=== PATIENT | female | born 1945 | race Caucasian/White ===

== ENCOUNTER 2024-10-01 21:50 | Emergency (ER) | payer OTHER, SELFPAY ==
--- NOTE | ~2024-10-01 | XR_ITS ---
XR hand LT min 3V Ordering provider: Abdon Luna MD History: . fall . Comparison: None. FINDINGS: BONES: Fracture of the distal metaphysis of the left radius with posterior angulation. Fracture of th e ulnar styloid is also noted. JOINT SPACES: Narrowing of the proximal and distal interphalangeal joints. SOFT TISSUES: Unremarkable. IMPRESSION: Fracture of the distal metaphysis of the left radius with posterior angulation. Fracture of the ulnar styloid. Reviewed, dictated and finalized at location A.
--- NOTE | ~2024-10-01 | XR_ITS ---
XR wrist LT min 3V Ordering provider: Abdon Luna MD History: . fall . Comparison: None. FINDINGS: BONES: Fracture of distal metaphysis of the left radius with posterior angulation. The angulation is about 140 degrees. Fracture of the ulnar styloid. JOINT SPACES: Well maintained. SOFT TISSUES: Atherosclerotic changes. IMPRESSION: Fracture of the distal metaphysis of the left radius with fracture of the ulnar styloid. Reviewed, dictated and finalized at location A.
[2024-10-01 21:51] VITALS: BP 115/67; PULSE 77; RESP 16; TEMP 36.4; O2SAT 100
--- OUTSIDE RECORDS SUMMARY | 2024-10-01 21:52 | XMS_ITS | Continuity of Care Document ---
Author Organization [facility] Address [address] [place] [address] [place] [address] Phone Care Team Providers Care Dairy Frozen Manager Name Role Phone Gracia Talbot Unavailable Unavailable Procedures Procedure Date Eye Exam & Treatment Refraction No Charge Glasses Check Eye Exam & Treatment Refraction Advance Directives Directive Yes / No Effective Date File Name No Information Encounters Encounter Description Practice Location Reason(s) For Visit Diagnoses Date Provider Providers Copied on Encounter [facility], [address] [place] [address] [address], [place], [place], [id number], [place] tel:[phone] [facility] No Information 0-200 9 Dahiana Harrington [address] , [address], [place], [place], [facility] [place], [place]. tel:[phone] [facility], [address] [place] [address] [address], [place], [place], [id number], [place] tel:[phone] [facility] No Information 0-200 7 Dahiana Harrington [address] , [address], [place], [address], [place]. tel:[phone] [facility], [address] [place] [address] [address], [place], [place], [id number], [place] tel:[phone] [facility] No Information 9-200 7 Dahiana Harrington [address] , [address], [place], [address], [place]. tel:[phone] Family History Family Member Type Diagnosis Age At Onset No Information Payers Payer name Insurance type Covered libertarian ID Authoriza tion(s) No Information Social History Type Description Quantity Date Captured Comments Sex Female Smoking Status No Information Chief Complaint And Reason For Visit No Information Reason For Referral Reason For Referral No Information History Of Present Illness Encounter Date Complaint History Of Prese nt Illness No Information Functional Status Date Functional Assessmen t No Information Instructions Date Instruction Additional Infor mation No Information Assessments Type Assessment Date No Information Patient Care Teams Name Effective Dates (start - stop) Status Members No Information
--- OUTSIDE RECORDS SUMMARY | 2024-10-01 21:53 | XMS_ITS | Encounter Summary ---
Author Organization [facility] Facility Care Team Providers Care Catia Designer Name Role Phone Sagar Walters MD Primary Care Provider [phone] ASHVIN Burr Jr., Zaki Wolf Primary Care Provide r Jonna Osorio MD Unavailable [phone] Jl Nevarez MD Unavailable [phone] Encounter Details Date Type Department Care Team (Latest Contact Info) Description 12/10/2017 Orders Only [facility] CLINCON[facility] ProviderJoe MD [address] [place] [address] Social History Tobacco Use Types Packs/Day Years Used Date Smoking Tobacco: Never Alcohol Use Standard Drinks/Week Comments No 0 (1 standard drink = 0.6 oz pur e alcohol) Comments Unknown Sex and Gender Information Value Date Recorded Sex Assigned at Not on file Legal Sex Female 11:37 PM TUBE WRAPPER Gender Identity Not on file Sexual Orientation Not on file documented as of this encounter Plan of Treatment Not on file documented as of this encounter Procedures Procedure Name Priority Date/Time Associated Diagnosis Comments CARDIOLOGY REPORT 12/10/2017 12: 00 AM CDT documented in this encounter Results * CARDIOLOGY REPORT (12/10/2017 12:00 AM CDT) Anatomical Region Laterality Modality Other Narrative 12/10/2017 12:00 AM CDT Ordered by an unspecified provider. Historical Provider [facility] Final Result documented in this encounter Visit Diagnoses Not on filedocumented in this encounter Care Teams Catia Designer Relationship Specialty Start Date End Date Sagar Walters MD [address] [address] PCP - General 03/09/09 10/28/18 Zaki Burr Jr., PA [address] [place] [address] PCP - General Physician Electrical Electronics Technician 10/29/18 Jonna Osorio MD [address] [place] [address] Consulting Physician Family Medicine 07/02/19 06/01/22 Jl Nevarez MD [address] [place] [address] Consulting Physician Family Medicine 06/02/22 documented as of this encounter
--- OUTSIDE RECORDS SUMMARY | 2024-10-01 21:53 | XMS_ITS | Encounter Summary ---
Author Organization [facility] Facility Care Team Providers Care Certified Ophthalmic Surgical Assistant Name Role Phone Sagar Walters MD Primary Care Provider [phone] ASHVIN Burr Jr., Zaki Wolf Primary Care Provide r Jonna Osorio MD Unavailable [phone] Jl Nevarez MD Unavailable [phone] Encounter Details Date Type Department Care Team (Latest Contact Info) Description 03/18/2018 Orders Only [facility] CLINCONV ProviderJoe MD [address] [place] [address] Social History Tobacco Use Types Packs/Day Years Used Date Smoking Tobacco: Never Alcohol Use Standard Drinks/Week Comments No 0 (1 standard drink = 0.6 oz pur e alcohol) Comments Unknown Sex and Gender Information Value Date Recorded Sex Assigned at Not on file Legal Sex Female 11:37 PM HOSPICE AIDE Gender Identity Not on file Sexual Orientation Not on file documented as of this encounter Plan of Treatment Not on file documented as of this encounter Procedures Procedure Name Priority Date/Time Associated Diagnosis Comments CARDIOLOGY REPORT 03/18/2018 12: 00 AM CDT documented in this encounter Results * CARDIOLOGY REPORT (03/18/2018 12:00 AM CDT) Anatomical Region Laterality Modality Other Narrative 03/18/2018 12:00 AM CDT Ordered by an unspecified provider. Historical Provider [facility] Final Result documented in this encounter Visit Diagnoses Not on filedocumented in this encounter Care Teams Certified Ophthalmic Surgical Assistant Relationship Specialty Start Date End Date Sagar Walters MD [address] [address] PCP - General 03/09/09 10/28/18 Zaki Burr Jr., PA [address] [place] [address] PCP - General Physician Controls Design Engineer 10/29/18 Jonna Osorio MD [address] [place] [address] Consulting Physician Family Medicine 07/02/19 06/01/22 Jl Nevarez MD [address] [place] [address] Consulting Physician Family Medicine 06/02/22 documented as of this encounter
--- OUTSIDE RECORDS SUMMARY | 2024-10-01 21:53 | XMS_ITS | Encounter Summary ---
Author Organization [facility] Address [address] [place] [address] Care Team Providers Care Precision Honing Machine Operator Name Role Phone ASHVIN Burr Jr., Zaki Wolf Primary Care Provide r Jl Nevarez MD Unavailable Encounter Details Date Type Department Care Team ([facility] st Contact Info) Description 11/02/2023 Telephone [facility] Primary Care [address] [address] Zaki Burr Jr., PA [facility] [address] Social History Tobacco Use Types Packs/Day Years Used Date Smoking Tobacco: Never Smokeless Tobacco: Never Alcohol Use Standard Drinks/Week Comments Never 0 (1 standard drink = 0.6 oz pur e alcohol) AUDIT-C Answer Date Recorded Q1: How often do you have a drink containing alc ohol? Never 12/27/2020 Average Number of Drinks Not on file 021 Frequency of Binge Drinking Not on file 01/2021 PHQ-2 Answer Date Recorded PHQ-2 Total Score (If total score is 3 or more points, staff should administer the PHQ-9) 0 11/05/2023 Comments No Sex and Gender Information Value Date Recorded Sex Assigned at Not on file Legal Sex Female 11:37 PM BID CLERK Gender Identity Not on file Sexual Orientation Not on file Occupation Industry Job Start Date Job End Date Retired Not on file Not on file Not on file documented as of this encounter Plan of Treatment Not on file documented as of this encounter Visit Diagnoses Not on filedocumented in this encounter Care Teams Precision Honing Machine Operator Relationship Specialty Start Date End Date Zaki Burr Jr., PA [address] [address] PCP - General Physician Body Piercer 10/29/18 Jl Nevarez MD [address] [address] Consulting Physician Family Medicine 06/02/22 documented as of this encounter
--- OUTSIDE RECORDS SUMMARY | 2024-10-01 21:53 | XMS_ITS | Encounter Summary ---
Author Organization [facility] Facility Care Team Providers Care Swimming Pool Cleaner Name Role Phone Sagar Walters MD Primary Care Provider [phone] ASHVIN Burr Jr., Zkai Wolf Primary Care Provide r Jonna Osorio MD Unavailable [phone] Jl Nevarez MD Unavailable [phone] Encounter Details Date Type Department Care Team (Latest Contact Info) Description 01/10/2016 Orders Only [facility] CLINCONV ProviderJoe MD [address] [place] [address] Social History Tobacco Use Types Packs/Day Years Used Date Smoking Tobacco: Never Alcohol Use Standard Drinks/Week Comments No 0 (1 standard drink = 0.6 oz pur e alcohol) Comments Unknown Sex and Gender Information Value Date Recorded Sex Assigned at Not on file Legal Sex Female 11:37 PM STEWARD/STEWARDESS THIRD Gender Identity Not on file Sexual Orientation Not on file documented as of this encounter Plan of Treatment Not on file documented as of this encounter Procedures Procedure Name Priority Date/Time Associated Diagnosis Comments CARDIOLOGY REPORT 01/25/2016 12: 00 AM CDT documented in this encounter Results * CARDIOLOGY REPORT (01/25/2016 12:00 AM CDT) Anatomical Region Laterality Modality Other Narrative 01/25/2016 12:00 AM CDT Ordered by an unspecified provider. Historical Provider [facility] Final Result documented in this encounter Visit Diagnoses Not on filedocumented in this encounter Care Teams Swimming Pool Cleaner Relationship Specialty Start Date End Date Sagar Walters MD [address] [address] PCP - General 03/09/09 10/28/18 Zaki Burr Jr., PA [address] [place] [address] PCP - General Physician Equipment Tester 10/29/18 Jonna Osorio MD [address] [place] [address] Consulting Physician Family Medicine 07/02/19 06/01/22 Jl Nevarez MD [address] [place] [address] Consulting Physician Family Medicine 06/02/22 documented as of this encounter
--- OUTSIDE RECORDS SUMMARY | 2024-10-01 21:53 | XMS_ITS | Encounter Summary ---
Author Organization [facility] Facility Care Team Providers Care Darkroom Technician Name Role Phone Sagar Walters MD Primary Care Provider [phone] ASHVIN Burr Jr., Zaki Wolf Primary Care Provide r Jonna Osorio MD Unavailable [phone] Jl Nevarez MD Unavailable [phone] Encounter Details Date Type Department Care Team (Latest Contact Info) Description 05/15/2016 Orders Only [facility] CLINCONV ProviderJoe MD [address] [place] [address] Social History Tobacco Use Types Packs/Day Years Used Date Smoking Tobacco: Never Alcohol Use Standard Drinks/Week Comments No 0 (1 standard drink = 0.6 oz pur e alcohol) Comments Unknown Sex and Gender Information Value Date Recorded Sex Assigned at Not on file Legal Sex Female 11:37 PM WAREHOUSE RECEIVING SUPERVISOR Gender Identity Not on file Sexual Orientation Not on file documented as of this encounter Plan of Treatment Not on file documented as of this encounter Procedures Procedure Name Priority Date/Time Associated Diagnosis Comments CARDIOLOGY REPORT 05/15/2016 12: 00 AM CDT documented in this encounter Results * CARDIOLOGY REPORT (05/15/2016 12:00 AM CDT) Anatomical Region Laterality Modality Other Narrative 05/15/2016 12:00 AM CDT Ordered by an unspecified provider. Historical Provider [facility] Final Result documented in this encounter Visit Diagnoses Not on filedocumented in this encounter Care Teams Darkroom Technician Relationship Specialty Start Date End Date Sagar Walters MD [address] [address] PCP - General 03/09/09 10/28/18 Zaki Burr Jr., PA [address] [place] [address] PCP - General Physician High Speed Printer Operator 10/29/18 Jonna Osorio MD [address] [place] [address] Consulting Physician Family Medicine 07/02/19 06/01/22 Jl Nevarez MD [address] [place] [address] Consulting Physician Family Medicine 06/02/22 documented as of this encounter
--- OUTSIDE RECORDS SUMMARY | 2024-10-01 21:53 | XMS_ITS | Clinical Summary ---
Author Organization [facility] Address [address] [place] [address] Care Team Providers Care Gas Welder Name Role Phone Unavailable Primary Care Provider Unavailabl e Social History Tobacco Use Types Packs/Day Years Used Date Smoking Tobacco: Never Assessed Comments Unknown Sex and Gender Information Value Date Recorded Sex Assigned at Not on file Legal Sex Female 8:06 PM CDT Gender Identity Not on file Sexual Orientation Not on file Plan of Treatment Health Maintenance Due Date Last Done Comments DTaP, Tdap and Td Vaccines ( 1 - Tdap) 1962 Zoster Vaccines (1 of 2) 1993 Dexa Scan (General) 2008 Pneumococcal Vaccine: 65+ Ye ars (1 of 1 - PCV) 2008 RSV Immunization or 60+ Years (1 - 1-dose 75+ series) 2018 COVID-19 Vaccine (2023-2 5 season) 2024 Influenza Adult (#1) 2024 Meningococcal B Vaccine Aged Out No l onger eligible based on patient's age to complete this topic Meningococcal Vaccine Aged Out No wes poornima eligible based on patient's age to complete this topic RSV Immunizations Under 20 Months Aged Out No longer eligible based on patient's age to complete this topic
--- OUTSIDE RECORDS SUMMARY | 2024-10-01 21:53 | XMS_ITS | Encounter Summary ---
Author Organization [facility] Facility Care Team Providers Care Streetcar Conductor Name Role Phone Sagar Walters MD Primary Care Provider [phone] ASHVIN Burr Jr., Zaki Wolf Primary Care Provide r Jonna Osorio MD Unavailable [phone] Jl Nevarez MD Unavailable [phone] Encounter Details Date Type Department Care Team (Latest Contact Info) Description 06/07/2017 Orders Only [facility] CLINCONV ProviderJoe MD [address] [place] [address] Social History Tobacco Use Types Packs/Day Years Used Date Smoking Tobacco: Never Alcohol Use Standard Drinks/Week Comments No 0 (1 standard drink = 0.6 oz pur e alcohol) Comments Unknown Sex and Gender Information Value Date Recorded Sex Assigned at Not on file Legal Sex Female 11:37 PM RUG INSPECTOR HELPER Gender Identity Not on file Sexual Orientation Not on file documented as of this encounter Plan of Treatment Not on file documented as of this encounter Procedures Procedure Name Priority Date/Time Associated Diagnosis Comments CARDIOLOGY REPORT 06/07/2017 12: 00 AM RUG INSPECTOR HELPER documented in this encounter Results * CARDIOLOGY REPORT (06/07/2017 12:00 AM RUG INSPECTOR HELPER) Anatomical Region Laterality Modality Other Narrative 06/07/2017 12:00 AM RUG INSPECTOR HELPER Ordered by an unspecified provider. Historical Provider [facility] Final Result documented in this encounter Visit Diagnoses Not on filedocumented in this encounter Care Teams Streetcar Conductor Relationship Specialty Start Date End Date Sagar Walters MD [address] [address] PCP - General 03/09/09 10/28/18 Zaki Burr Jr. PA [address] [place] [address] PCP - General Physician Windshield Repair Technician 10/29/18 Jonna Osorio MD [address] [place] [address] Consulting Physician Family Medicine 07/02/19 06/01/22 Jl Nevarez MD [address] [place] [address] Consulting Physician Family Medicine 06/02/22 documented as of this encounter
--- OUTSIDE RECORDS SUMMARY | 2024-10-01 21:53 | XMS_ITS | Referral Summary ---
Author Organization [address] Address [address] [place] [id number] Care Team Providers Care Technical Designer Name Role Phone ASHVIN Burr Jr., Zaki Wolf Primary Care Provide r Jl Nevarez MD Unavailable Encounters Date Type Department Care Team Description 07/08/2024 Orders Only [facility] Primary Care [address] [facility] [address] [place] [phone] Zaki Burr Jr., PA Bilateral leg pain (Primary Dx); Chronic right-sided low back pain without sciatica 07/03/2024 5:27 PM LOCK TECHNICIAN - 07/03/2024 11:59 PM LOCK TECHNICIAN Hospital Encounter [address] [address] Medicare annual wellness visit, subsequent; Acquired hypothyroidism; Essential hypertension; Pure hypercholesterolemia; Seizure disorder (HCC); Vitamin D deficiency, unspecified; Need for hepatitis B screening test Discharge Disposition: Discharge to home or self care 07/03/2024 Orders Only [facility] Cardiology [address] [facility] [address] [phone] Balta Ramos MD ICD (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 (Primary Dx); Nonischemic cardiomyopathy (HCC) 07/03/2024 10:15 AM LOCK TECHNICIAN Ancillary Procedure [facility] Imaging at [address] [phone] Chronic right-sided low back pain without sciatica 07/03/2024 9:30 AM LOCK TECHNICIAN Lab [facility] Outpatient Lab at [address] [phone] Osteoporosis (Primary Dx); Essential hypertension 07/03/2024 2:15 PM LOCK TECHNICIAN Ancillary Procedure [facility] Cardiology [address] [facility] [address] [place] [address] ICD (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; Ischemic cardiomyopathy from Last 3 Months Allergies Active Allergy Reactions Criticality Noted Date Comments Lisinopril Cough Low 10/25/2018 cough Medications aspirin 81 mg chewable tablet Take 1 tablet (81 mg total) by mouth daily Active calcium carbonate (OS-RACHEL) 1,250 MG (500 mg of elemental calcium) tablet Take 500 mg by mouth daily Active cholecalciferol (VITAMIN D-3) 5,000 unit capsule 1 capsule (5,000 Units total) daily Active fish oil-dha-epa 1,200-144-216 mg capsule Take 1 capsule by mouth daily Active multivitamin-mine rals-lutein tablet Take 2 tablets by mouth daily Active furosemide (LASIX) 20 mg tablet Take 1 tablet (20 mg total) by mouth daily 90 tablet 1 023 Active Additional Information Patient taking differently:20 mg oralDaily PRN, Reported on 06/16/2024 sacubitriL-valsar herron (ENTRESTO) 24-26 mg tabletIndications :chronic heart failure Take 1 tablet by mouth 2 (two) times a day 180 tablet 1 024 Active cyclobenzaprine (FLEXERIL) 5 mg tabletIndications :Acute midline low back pain without sciatica Take 1 tablet (5 mg total) by mouth 3 (three) times a day as needed for muscle spasms 30 tablet 024 Active carvediloL (COREG) 25 mg tablet TAKE 1 TABLET BY MOUTH TWICE DAILY 180 tablet 1 024 Active levothyroxine (SYNTHROID) 50 mcg tabletIndications :Acquired hypothyroidism TAKE 1 TABLET BY MOUTH EVERY DAY 90 tablet 1 024 Active hydrALAZINE (APRESOLINE) 50 mg tablet TAKE 1 TABLET BY MOUTH EVERY DAY 90 tablet 1 025 Active phenytoin ER (DILANTIN) 100 mg ER capsuleIndication s:Seizure disorder (HCC) TAKE 2 CAPSULES BY MOUTH TWICE DAILY 360 capsule 1 025 Active atorvastatin (LIPITOR) 40 mg tablet TAKE 1 TABLET BY MOUTH EVERY EVENING 90 tablet 1 025 Active atorvastatin (LIPITOR) 40 mg tablet TAKE 1 TABLET BY MOUTH EVERY EVENING 90 tablet 1 024 2024 Discontinued Active Problems Problem Noted Date Diagnosed Date Essential hypertension 06/12/2023 Essential hypertension, benign 12/08/2021 Nonischemic cardiomyopathy 01/04/2021 Chronic systolic congestive heart failure 2018 Assessment & Plan (01/12/2020 9:46 AM CDT): And diastolic as well. Blood pressure control. Continue Cozaar Assessment & Plan (06/30/2019 9:29 AM LOCK TECHNICIAN): Fluid accumulation late May resolved. Perhaps dietary complaints over around . Will give p.r.n. Lasix. ICD (implantable cardioverter-defibrillator) in place 12/23/2018 Assessment & Plan (12/09/2020 2:48 PM CDT): Check today shows history HD SUPRIYA. Normal lead function. No pacing no events. No history of treated events. If ejection fraction truly greater than 50% as was on most recent stress test ICD not indicated. Discussed with her. Will check echo Doppler. If EF okay then abandon ICD. Does not need as pacemaker Assessment & Plan (07/26/2020 9:08 AM LOCK TECHNICIAN): Normal function. No pacing. Nearing SUPRIYA. Assessment & Plan (01/12/2020 9:35 AM CDT): Check today shows normal function. Underlying rhythm sinus. Excellent lead function. Battery about 1 year. Assessment & Plan (06/30/2019 9:21 AM LOCK TECHNICIAN): Check today shows normal function. No pacing excellent lead function. No arrhythmias. Assessment & Plan (12/23/2018 9:52 AM CDT): Check today shows normal function. Underlying rhythm sinus. Normal histogram. Excellent lead function and better life. No events Coronary artery disease of n ative artery of [place] heart with stable angina pectoris 12/23/2018 Assessment & Plan (07/26/2020 9:08 AM LOCK TECHNICIAN): No symptoms. Continue aspirin atorvastatin carvedilol Assessment & Plan (01/12/2020 9:45 AM CDT): Recent stress test showed infarct but no ischemia. Continue carvedilol aspirin and statin. Assessment & Plan (06/30/2019 9:28 AM LOCK TECHNICIAN): Patient states little more did shortness of breath with activity. Occasional exertional chest pains. Last stress test was 2013 showing no ischemia resolution of cardiomyopathy. Will repeat. Assessment & Plan (12/23/2018 9:56 AM CDT): No complaints. Continue aspirin Coreg Lipitor Vitamin D deficiency 01/02/2017 Osteoporosis 12/06/2013 Overview (10/26/2016): OSTEOPOROSIS NOS Seizure disorder 12/06/2013 Overview (10/26/2016): Seizure disorder Hypothyroidism 12/06/2013 Overview (10/27/2016): HYPOTHYROIDISM NOS Chondroma 11/18/2012 Hyperlipemia Postmenopausal Resolved Problems Problem Noted Date Diagnosed Date Resolved Date Nonischemic cardiomyopathy 06/09/2021 1 08/09/2020 Essential hypertension 12/23/201812/08 Assessment & Plan (06/30/2019 9:28 AM LOCK TECHNICIAN): Controlled. Assessment & Plan (12/23/2018 9:57 AM CDT): Controlled. Continue current medications Cardiomyopathy 04/25/2016 05/25/2021 Assessment & Plan (12/09/2020 2:48 PM CDT): Resolved. Continue carvedilol and losartan. Ischemic cardiomyopathy 04/25/201605/23 Assessment & Plan (07/26/2020 9:06 AM LOCK TECHNICIAN): Stable. Continue carvedilol and losartan Mixed hyperlipidemia 12/06/2013 021 Overview (10/27/2016): HYPERLIPIDEMIA NEC/NOS Assessment & Plan (07/26/2020 9:06 AM LOCK TECHNICIAN): Continue Lipitor Assessment & Plan (01/12/2020 9:46 AM CDT): Continue atorvastatin Assessment & Plan (06/30/2019 9:29 AM LOCK TECHNICIAN): Continue Lipitor 40 Assessment & Plan (12/23/2018 9:57 AM CDT): Last lipid panel near goal. Patient was shows to continue to exercise and diet Seizure ([facility]) 05/25/2021 Overview (12/27/2020): 8TH GRADE - STARING SPELLS Immunizations Immunization Administration Dates Next Due Influenza, Quadrivalent, Hig h Dose, Preservative Free, Intrr 06/06/2023,06/02/2022,04/15/2021,04/29 Influenza, Trivalent, High D ose, Split, Preservative Free, Intramuscular 04/03/2024,05/09/2019,04/24/2018,06/01 Influenza, Trivalent, IM (MDV) 05/09/2007 Influenza, Unspecified 06/06/2023 Pneumococcal Conjugate PCV 13 04/24/2018 Pneumococcal Polysaccharide PPV23 02/19/2009 Tdap 03/09/2017 Social History Tobacco Use Types Packs/Day Years Used Date Smoking Tobacco: Never Smokeless Tobacco: Never Tobacco Cessation:Counseling Given: Not Answered Alcohol Use Standard Drinks/Week Comments Never 0 (1 standard drink = 0.6 oz pur e alcohol) AUDIT-C Answer Date Recorded Q1: How often do you have a drink containing alc ohol? Never 06/16/2024 Average Number of Drinks Not on file 024 Frequency of Binge Drinking Not on file 05/24 PHQ-2 Answer Date Recorded PHQ-2 Total Score (If total score is 3 or more points, staff should administer the PHQ-9) 0 06/16/2024 Comments No Sex and Gender Information Value Date Recorded Sex Assigned at Not on file Legal Sex Female 11:37 PM LOCK TECHNICIAN Gender Identity Not on file Sexual Orientation Not on file Occupation Industry Job Start Date Job End Date Retired Not on file Not on file Not on file Last Filed Vital Signs Vital Sign Reading Time Taken Comments Blood Pressure 116/70 06/16/2024 10:12 AM LOCK TECHNICIAN Pulse 73 06/16/2024 10:12 AM LOCK TECHNICIAN Temperature 36.1 C (97 F) 06/16/2024 10:12 AM LOCK TECHNICIAN Respiratory Rate 18 06/16/2024 10:12 AM LOCK TECHNICIAN Oxygen Saturation 95% 06/16/2024 10:12 AM LOCK TECHNICIAN Inhaled Oxygen Concentration - - Weight 69.9 kg (154 lb) 06/16/2024 10:12 AM LOCK TECHNICIAN Height 165.1 cm (5' 5 ) 06/16/2024 10:12 AM LOCK TECHNICIAN Body Mass Index 25.63 06/16/2024 10:12 AM LOCK TECHNICIAN Plan of Treatment Not on file Medical Devices Implanted Type Area Bellmaker Device Identifier Shelf Expiration Date Model / Serial / Lot Icd-05/23/2001 Implanted: 001 by Luciano Washburn MD (Quantity not on file) ICD Left: Chest Medtronic Med[employer] [id number] Visia Af Mri Surescan [id number] Defibrillator Cardiac - [id number] - [id number] Implanted:Qty: 1 on 12/28/2020 by Luciano Washburn MD at [facility] ICD Medtronic Inc [id number] 04/05/2021 [id number] / [id number] / Procedures Procedure Name Priority Date/Time Associated Diagnosis Comments XR SPINE LUMBAR COMPLETE 4 OR MORE VIEWS Schedule Routine, Read Routine (OP Routine) 07/03/2024 10:01 AM LOCK TECHNICIAN Chronic right-sided low back pain without sciatica DIFFERENTIAL AUTO Routine 07/03/2024 9:0 0 AM LOCK TECHNICIAN Medicare annual wellness visit, subsequent Essential hypertension Pure hypercholesterolemia Seizure disorder (HCC) TSH Routine 07/03/2024 9:00 AM [facility] Medicare annual wellness visit, subsequent Acquired hypothyroidism PHENYTOIN LEVEL, TOTAL Routine 07/03/2024 9:00 AM CST Medicare annual wellness visit, subsequent Seizure disorder (HCC) VITAMIN D 25 HYDROXY Routine 07/03/2024 9:00 AM CST Medicare annual wellness visit, subsequent Vitamin D deficiency, unspecified CBC WITH AUTO DIFFERENTIAL Routine 07/03/2024 9:00 AM CST Medicare annual wellness visit, subsequent Essential hypertension Pure hypercholesterolemia Seizure disorder (HCC) T3, FREE Routine 07/03/2024 9:00 AM CST Medicare annual wellness visit, subsequent Acquired hypothyroidism T4, FREE Routine 07/03/2024 9:00 AM CST Medicare annual wellness visit, subsequent Acquired hypothyroidism HEPATITIS B SURFACE ANTIBODY (IMMUNE STATUS) Routine 07/03/2024 9:00 AM CST Medicare annual wellness visit, subsequent Need for hepatitis B screening test DEXA AXIAL SKELETON BONE DENSITY 1 OR MORE SITES Schedule Routine, Read Routine (OP Routine) 12/08/2022 12:38 PM CDT Medicare annual wellness visit, subsequent Age-related osteoporosis without current pathological fracture from Last 3 Months or Most Recently Relevant to Health Maintenance Results * XR Spine Lumbar Complete 4 Or More (07/03/2024 10:01 AM LOCK TECHNICIAN) Anatomical Region Laterality Modality Spine N/A Digital Radiogra phy 07/06/2024 2:43 PM LOCK TECHNICIAN Narrative 07/06/2024 2:46 PM LOCK TECHNICIAN EXAM DESCRIPTION: XR SPINE LUMBAR 4 OR MORE VIEWS REASON FOR STUDY: R lower back pain x 1 yr Pt complains of chronic lbp. No spine surgery. No known injury FINDINGS: Four views submitted without comparison. No acute fractures are identified. There is mild rotary dextroscoliosis of the upper lumbar spine. There is xdml-ns-mnvdpazb L1-L5 degenerative disc disease, greatest at L2-L3. Inferior lumbar facet osteoarthritis is present. There is mild bilateral hip osteoarthritis. Pacer defibrillator is in place. Arterial atherosclerosis is noted. IMPRESSION: Mzke-tu-doagfcxc L1-L5 degenerative disc disease, greatest at L2-L3 with inferior lumbar facet osteoarthritis. Mild rotary dextroscoliosis of the upper lumbar spine. THIS IS AN ELECTRONICALLY VERIFIED FINAL REPORT 07/06/2024 2:46 PM - Electronically signed by Sonu Rivera M.D. T: Report ID: [id number] Reading Location: [id number] Procedure Note Sonu Rivera MD - 07/06/2024 EXAM DESCRIPTION: XR SPINE LUMBAR 4 OR MORE VIEWS REASON FOR STUDY: R lower back pain x 1 yr Pt complains of chronic lbp. No spine surgery. No known injury FINDINGS: Four views submitted without comparison. No acute fractures are identified. There is mild rotary dextroscoliosisof the upper lumbar spine. There is ehvz-dx-kkbkegdo L1-L5 degenerative disc disease, greatest at L2-L3. Inferior lumbar facet osteoarthritis ispresent. There is mild bilateral hip osteoarthritis. Pacer defibrillator is inplace. Arterial atherosclerosis is noted. IMPRESSION: Iqow-rq-pbmprdld L1-L5 degenerative disc disease, greatest at L2-L3 with inferior lumbar facet osteoarthritis. Mild rotary dextroscoliosis of the upper lumbar spine. THIS IS AN ELECTRONICALLY VERIFIED FINAL REPORT 07/06/2024 2:46 PM - Electronically signed by Sonu Rivera M.D. T: Report ID: [id number] Reading Location: [place] [address] us Zaki Burr Jr., ASHVIN IMG XR PROCEDURES Fin al Result * Differential, auto (07/03/2024 9:00 AM LOCK TECHNICIAN) Neutrophil abs 4.9 1.5 - 6.5 K/cumm Imm gran abs 0.0 0.0 - 0.1 K/cumm [facility] Lymphocyte abs 1.1 0.8 - 3.3 K/cumm [facility] Monocyte abs 0.7 0.2 - 0.8 K/cumm [facility] Eosinophil abs 0.1 0.0 - 0.5 K/cumm [facility] Basophil abs 0.0 0.0 - 0.1 K/cumm [facility] Neutrophil pct 71.9 % [facility] Comment: Interpretive Data Percent cell count reference ranges are not reported, since discordance with absolute values may lead to misinterpretation of CBC data. Current Interpretive Data was last revised on 2017. Imm gran pct 0.3 % [facility] Comment: Interpretive Data Percent cell count reference ranges are not reported, since discordance with absolute values may lead to misinterpretation of CBC data. Current Interpretive Data was last revised on 2017. Lymphocyte pct 16.1 % [facility] Comment: Interpretive Data Percent cell count reference ranges are not reported, since discordance with absolute values may lead to misinterpretation of CBC data. Current Interpretive Data was last revised on 2017. Monocyte pct 9.8 % [facility] Comment: Interpretive Data Percent cell count reference ranges are not reported, since discordance with absolute values may lead to misinterpretation of CBC data. Current Interpretive Data was last revised on 2017. Eosinophil pct 1.3 % [facility] Comment: Interpretive Data Percent cell count reference ranges are not reported, since discordance with absolute values may lead to misinterpretation of CBC data. Current Interpretive Data was last revised on 2017. Basophil pct 0.6 % [facility] Comment: Interpretive Data Percent cell count reference ranges are not reported, since discordance with absolute values may lead to misinterpretation of CBC data. Current Interpretive Data was last revised on 2017. Blood 07/03/2024 9:00 AM LOCK TECHNICIAN 07/03/2024 6:31 PM LOCK TECHNICIAN us ASHVIN Mckeon Jr. LAB BLOOD ORDERABLES Final Result ARTEMIO SNOW [address] [address] Department [place] [address] * (ABNORMAL) CBC with auto differential (07/03/2024 9:00 AM LOCK TECHNICIAN) WBC 6.8 3.8 - 9.9 K/cumm Hgb 11.6(L) 11.9 - 15.5 g/dL [facility] Hct 38.0 35.6 - 45.5 % [facility] Plt 263 150 - 400 K/cumm [facility] MPV 10.8 9.1 - 12.3 fL [facility] RBC 3.78(L) 3.90 - 5.20 M/cumm [facility] MCV 100.5(H) 81.3 - 96.4 fL [facility] MCH 30.7 27.1 - 33.3 pg [facility] MCHC 30.5(L) 32.3 - 35.7 g/dL [facility] RDW CV 13.7 11.1 - 14.9 % [facility] RDW SD 50.7(H) 35.7 - 48.1 fL [facility] NRBC abs 0.00 0.00 - 0.01 K/cumm [facility] Blood 07/03/2024 9:00 AM LOCK TECHNICIAN 07/03/2024 6:31 PM LOCK TECHNICIAN us ASHVIN Mckeon Jr. LAB BLOOD ORDERABLES Final Result Performing Organization Address [facility] Co de Phone Number ARTEMIO SNOW [address] [address] [facility] [place], [place] [id number] * Vitamin D 25 hydroxy (07/03/2024 9:00 AM LOCK TECHNICIAN) [facility] Vitamin D 25-OH 38 30 - 80 ng/mL Blood 07/03/2024 9:00 AM LOCK TECHNICIAN 07/03/2024 6:31 PM LOCK TECHNICIAN ASHVIN Mckeon Jr. LAB BLOOD ORDERABLES Final Result Performing Organization Address [facility] Co de Phone Number ARTEMIO SNOW [address] [address] [facility] [place] [address] * Hepatitis B surface antibody (immune status) Blood (07/03/2024 9:00 AM LOCK TECHNICIAN) [facility] HBsAb (immune status) Nonreactive Comment: Interpretive Data Nonreactive: This result is consistent with a lack of immunity to Hepatitis B Virus when used in the setting of routine screening. Equivocal: The immune status of the individual should be further assessed, if appropriate, after consideration of clinical status, risk factors, and additional diagnostic information. Reactive: This result is consistent with immunity to Hepatitis B Virus when used in the setting of routine screening. Current interpretive data was last revised on 19. Blood 07/03/2024 9:00 AM LOCK TECHNICIAN 07/03/2024 6:31 PM LOCK TECHNICIAN us ASHVIN Mckeon Jr. LAB MICROBIOLOGY - GE NERAL ORDERABLES Final Result Performing Organization Address City/[facility] Co de Phone Number ARTEMIO SNOW [address] [address] [facility] [place] [address] * T3, free (07/03/2024 9:00 AM LOCK TECHNICIAN) Free T3 2.3 2.0 - 4.4 pg/mL Blood 07/03/2024 9:00 AM LOCK TECHNICIAN 07/03/2024 6:31 PM LOCK TECHNICIAN ASHVIN Mckeon Jr. LAB BLOOD ORDERABLES Final Result Performing Organization Address [facility] Co de Phone Number ARTEMIO SNOW [address] [address] [facility] [place] [address] * TSH (07/03/2024 9:00 AM LOCK TECHNICIAN) Thyroid Stimulating Hormone 1.18 0.30 - 4.20 mcIUnit/mL Blood 07/03/2024 9:00 AM LOCK TECHNICIAN 07/03/2024 6:31 PM LOCK TECHNICIAN ASHVIN Mckeon Jr. LAB BLOOD ORDERABLES Final Result Performing Organization Address [facility] Co de Phone Number ARTEMIO [address] [address] [facility] [place] [address] * T4, free (07/03/2024 9:00 AM LOCK TECHNICIAN) Free T4 1.13 0.90 - 1.70 ng/dL Blood 07/03/2024 9:00 AM LOCK TECHNICIAN 07/03/2024 6:31 PM LOCK TECHNICIAN ASHVIN Mckeon Jr. LAB BLOOD ORDERABLES Final Result Performing Organization Address [facility] de Phone Number ARTEMIO SNOW [address] [address] [place] [address] * (ABNORMAL) Phenytoin level, total (07/03/2024 9:00 AM LOCK TECHNICIAN) Pathologist [facility] Phenytoin 6.0(L) 10.0 - 20.0 mcg/mL Blood 07/03/2024 9:00 AM LOCK TECHNICIAN 07/03/2024 6:31 PM LOCK TECHNICIAN ASHVIN Mckeon Jr. LAB BLOOD ORDERABLES Final Result Performing Organization Address [facility] de Phone Number ARTEMIO SNOW [address] [address] Department [place] [address] * Dexa Axial Skeleton Bone Density 1 Or 2 Site (12/08/2022 12:38 PM CDT) Anatomical Region Laterality Modality Body N/A Mammography 12/09/2022 6:21 PM CDT Narrative 12/09/2022 6:23 PM CDT EXAM DESCRIPTION: DEXA AXIAL SKELETON BONE DENSITY 1 OR MORE SITES REASON FOR STUDY: 77 y/o year old F with given history of screening. Bellmaker/Model: [email or web address] A (S/N [id number]) CLINICAL INFORMATION: Current height: 65 inches Maximum height: 67 inches Weight: 173 pounds Risk factors: Prior fracture COMPARISON: 05/25/2020 FINDINGS: AP LUMBAR SPINE L1-L4: Total BMD is 0.816 g/cm2 T-score is -2.1 This is a 1.3% decrease in comparison to prior exam which is not statistically significant. LEFT HIP: Total BMD is 0.782 g/cm2 T-score is -1.3 This is a 5.3% decrease in comparison to prior exam which is statistically significant. Femoral neck BMD is 0.741 g/cm2 T-score is -1.0 FRAX: 10 year risk for a major osteoporotic fracture is 17 %, 10 year risk for a hip fracture is 2.8 % IMPRESSION: Low bone mass REFERENCE: Bone mineral density: Normal (T-score above or = -1.0) Low bone mass (T-score between -1.0 and -2.5) replaces the previously used term osteopenia Osteoporosis (T-score = or below -2.5) Medical evaluation for secondary causes of low bone mineral density may be appropriate. FRAX is a World Health Organization validated fracture risk assessment tool that calculates a person's 10 year probability of a major osteoporosis related fracture and hip fracture. According to the National Osteoporosis Foundation guidelines, postmenopausal women and men age 50 or older with low bone mass and a 10 year probability of a major osteoporosis related fracture = or greater than 20% or a 10 year probability of a hip fracture = or greater than 3% should be considered for treatment. For further information, including treatment recommendations, please refer to the 2019 ISCD Official Positions (http://www.iscd.org) and the NOF's Clinician's Guide to Prevention and Treatment of Osteoporosis (http://www.nof.org/professionals/clinical-guidelines) THIS IS AN ELECTRONICALLY VERIFIED FINAL REPORT 12/09/2022 6:23 PM - Electronically signed by Gabriella Garcia M.D. TW: TW Report ID: [id number] Reading Location: [place] [address] Procedure Note Gabriella Garcia MD - 12/09/2022 EXAM DESCRIPTION: DEXA AXIAL SKELETON BONE DENSITY 1 OR MORE SITES REASON FOR STUDY: 77 y/o year old F with given history of screening. Bellmaker/Model: abeo A (S/N [id number]) CLINICAL INFORMATION: Current height: 65 inches Maximum height: 67 inches Weight: 173 pounds Risk factors: Prior fracture COMPARISON: 05/25/2020 FINDINGS: AP LUMBAR SPINE L1-L4: Total BMD is 0.816 g/cm2 T-score is -2.1 This is a 1.3% decrease in comparison to prior exam which is notstatistically significant. LEFT HIP: Total BMD is 0.782 g/cm2 T-score is -1.3 This is a 5.3% decrease in comparison to prior exam which is statistically significant. Femoral neck BMD is 0.741 g/cm2 T-score is -1.0 FRAX: 10 year risk for a major osteoporotic fracture is 17 %, 10 year risk for ahip fracture is 2.8 % IMPRESSION: Low bone mass REFERENCE: Bone mineral density: Normal (T-score above or = -1.0) Low bone mass (T-score between -1.0 and -2.5) replaces thepreviously used term osteopenia Osteoporosis (T-score = or below -2.5) Medical evaluation for secondary causes of low bone mineral density may be appropriate. FRAX is a World Health Organization validated fracture risk assessmenttool that calculates a person's 10 year probability of a major osteoporosisrelated fracture and hip fracture. According to the National OsteoporosisFoundation guidelines, postmenopausal women and men age 50 or older with low bonemass and a 10 year probability of a major osteoporosis related fracture = or greater than 20% or a 10 year probability of a hip fracture = or greaterthan 3% should be considered for treatment. For further information, including treatment recommendations, please referto the 2019 ISCD Official Positions (http://www.iscd.org) and the NOF's Clinician's Guide to Prevention and Treatment of Osteoporosis (http://[email or web address].org/[email or web address]/[email or web address]) THIS IS AN ELECTRONICALLY VERIFIED FINAL REPORT 12/09/2022 6:23 PM - Electronically signed by Gabriella Garcia M.D. TW: CARLOS MANUEL Report ID: [id number] Reading Location: [place] [address] ASHVIN Mckeon Jr. IMJaylene DXA PROCEDURES Fi nal Result from Last 3 Months or Most Recently Relevant to Health Maintenance Insurance [employer] CHOICE MEDICARE PPO Care Teams Technical Designer Relationship Specialty [place] [address] [place] [address] PCP - General Physician Marine Structural Welder 10/29/18 Jl Nevarez MD [address] [address] Consulting Physician Family Medicine 06/02/22
--- OUTSIDE RECORDS SUMMARY | 2024-10-01 21:53 | XMS_ITS | Encounter Summary ---
Author Organization [facility] Facility Care Team Providers Care Auto Electrical Technician Name Role Phone Sagar Walters MD Primary Care Provider [phone] ASHVIN Burr Jr., Zaki Wolf Primary Care Provide r Jonna Osorio MD Unavailable [phone] Jl Nevarez MD Unavailable [phone] Encounter Details Date Type Department Care Team (Latest Contact Info) Description 04/20/2016 Orders Only [facility] CLINCONV ProviderJoe MD [address] [place] [address] Social History Tobacco Use Types Packs/Day Years Used Date Smoking Tobacco: Never Alcohol Use Standard Drinks/Week Comments No 0 (1 standard drink = 0.6 oz pur e alcohol) Comments Unknown Sex and Gender Information Value Date Recorded Sex Assigned at Not on file Legal Sex 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 Historical Provider Final Res ult documented in this encounter Visit Diagnoses Not on filedocumented in this encounter Care Teams Auto Electrical Technician Relationship Specialty Start Date End Date Sagar Walters MD [address] [facility] [address] [place] [address] PCP - General 03/09/09 10/28/18 Zaki Burr Jr., PA [facility] [id number] PCP - General Physician Security Systems Engineer 10/29/18 Jonna Osorio MD [address] [place] [phone] Consulting Physician Family Medicine 07/02/19 06/01/22 Jl Nevarez MD [address] [place] [address] Consulting Physician Family Medicine 06/02/22 documented as of this encounter
--- OUTSIDE RECORDS SUMMARY | 2024-10-01 21:53 | XMS_ITS | Encounter Summary ---
Author Organization [facility] Facility Care Team Providers Care Stevedore Dock Name Role Phone Sagar Walters MD Primary Care Provider [phone] ASHVIN Burr Jr., Zaki Wlof Primary Care Provide r Jonna Osorio MD Unavailable [phone] Jl Nevarez MD Unavailable [phone] Encounter Details Date Type Department Care Team (Latest Contact Info) Description 01/20/2016 Orders Only [facility] CLINCONV ProviderJoe MD [address] [place] [address] Social History Tobacco Use Types Packs/Day Years Used Date Smoking Tobacco: Never Alcohol Use Standard Drinks/Week Comments No 0 (1 standard drink = 0.6 oz pur e alcohol) Comments Unknown Sex and Gender Information Value Date Recorded Sex Assigned at Not on file 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 Historical Provider [facility] HEID[facility] JUDD Final Result documented in this encounter Visit Diagnoses Not on filedocumented in this encounter Care Teams Stevedore Dock Relationship Specialty Start Date End Date Sagar Walters MD [address] [address] PCP - General 03/09/09 10/28/18 Zaki Burr Jr., PA [address] [place] [address] PCP - General Physician Marine Electrician Apprentice 10/29/18 Jonna Osorio MD [address] [place] [address] Consulting Physician Family Medicine 07/02/19 06/01/22 Jl Nevarez MD [address] [place] [address] Consulting Physician Family Medicine 06/02/22 documented as of this encounter
--- OUTSIDE RECORDS SUMMARY | 2024-10-01 21:53 | XMS_ITS | Continuity of Care Document ---
Author Organization [facility] Address [address] [place] [address] [address] [place] [address] Phone Care Team Providers Care Translation Director Name Role Phone Ashleigh PT, , Rhys Unavailable Unavailable Procedures Procedure Date PT RE-EVALUATION THERAPEUTIC EXERCISES MANUAL THERAPY FUNC ACTIVITY HOT/COLD PACK Carrying, Moving And Handling Objects-Delma ernst Carrying, Moving And Handling Objects-Go al Medications Name Dose Freq Route DOC Jan THERAPEUTIC EXERCISES MANUAL THERAPY FUNC ACTIVITY HOT/COLD PACK Medications Name Dose Freq Route DOC Jan THERAPEUTIC EXERCISES MANUAL THERAPY FUNC ACTIVITY HOT/COLD PACK Medications Name Dose Freq Route DOC Jan THERAPEUTIC EXERCISES MANUAL THERAPY FUNC ACTIVITY HOT/COLD PACK Medications Name Dose Freq Route DOC Jan THERAPEUTIC EXERCISES MANUAL THERAPY FUNC ACTIVITY HOT/COLD PACK Medications Name Dose Freq Route DOC Jan THERAPEUTIC EXERCISES MANUAL THERAPY FUNC ACTIVITY HOT/COLD PACK Medications Name Dose Freq Route DOC Jan THERAPEUTIC EXERCISES MANUAL THERAPY FUNC ACTIVITY HOT/COLD PACK Medications Name Dose Freq Route DOC Jan THERAPEUTIC EXERCISES MANUAL THERAPY FUNC ACTIVITY HOT/COLD PACK Medications Name Dose Freq Route DOC Jan PT RE-EVALUATION THERAPEUTIC EXERCISES MANUAL THERAPY FUNC ACTIVITY HOT/COLD PACK Carrying, Moving And Handling Objects-Cu rrent Carrying, Moving And Handling Objects-Go al Medications Name Dose Freq Route DOC Jan THERAPEUTIC EXERCISES NEUROMUSCULAR RE-ED FUNC ACTIVITY Medications Name Dose Freq Route DOC Dec THERAPEUTIC EXERCISES NEUROMUSCULAR RE-ED FUNC ACTIVITY Medications Name Dose Freq Route DOC Dec THERAPEUTIC EXERCISES NEUROMUSCULAR RE-ED FUNC ACTIVITY Medications Name Dose Freq Route DOC Dec OT RE-EVALUATION THERAPEUTIC EXERCISES NEUROMUSCULAR RE-ED FUNC ACTIVITY Carrying, Moving And Handling Objects-Cu rrent Carrying, Moving And Handling Objects-Go al Medications Name Dose Freq Route DOC Dec THERAPEUTIC EXERCISES NEUROMUSCULAR RE-ED FUNC ACTIVITY Medications Name Dose Freq Route DOC Dec OT EVALUATION THERAPEUTIC EXERCISES NEUROMUSCULAR RE-ED FUNC ACTIVITY 15 MIN Carrying, Moving And Handling Objects-Cu rrent Carrying, Moving And Handling Objects-Go al Medications Name Dose Freq Route DOC Dec Pain Assess Negative DOC 2013 BMI Normal and DOC 18-64 yo=18.5-25.0 65 + yo=23.0-30.0 No Falls or 1 Fall w/o Injury Screened f or Fall Risk Functional Outcome Assessmen t documented, deficits identified, treatment plan es Theraputty PT RE-EVALUATION THERAPEUTIC EXERCISES HOT/COLD PACK Carrying, Moving And Handling Objects-Cu rrent Carrying, Moving And Handling Objects-Go al THERAPEUTIC EXERCISES NEUROMUSCULAR RE-ED MANUAL THERAPY HOT/COLD PACK THERAPEUTIC EXERCISES NEUROMUSCULAR RE-ED MANUAL THERAPY HOT/COLD PACK THERAPEUTIC EXERCISES NEUROMUSCULAR RE-ED MANUAL THERAPY HOT/COLD PACK THERAPEUTIC EXERCISES NEUROMUSCULAR RE-ED MANUAL THERAPY HOT/COLD PACK THERAPEUTIC EXERCISES NEUROMUSCULAR RE-ED MANUAL THERAPY THERAPEUTIC EXERCISES NEUROMUSCULAR RE-ED MANUAL THERAPY HOT/COLD PACK THERAPEUTIC EXERCISES NEUROMUSCULAR RE-ED MANUAL THERAPY HOT/COLD PACK PT EVALUATION THERAPEUTIC EXERCISES NEUROMUSCULAR RE-ED MANUAL THERAPY HOT/COLD PACK Carrying, Moving And Handling Objects-Cu rrent Carrying, Moving And Handling Objects-Go al Medications Name Dose Freq Route DOC Sep Pain Assess Positive DOC 2013 BMI Normal and DOC 18-64 yo=18.5-25.0 65 + yo=23.0-30.0 No Falls or 1 Fall w/o Injury Screened f or Fall Risk Functional Outcome Assessment documented in the pa Advance Directives Directive Yes / No Effective Date File Name No Information Encounters Encounter Description Practice Location Reason(s) For Visit Diagnoses Date Provider Providers Copied on Encounter [facility], [address] [facility] [address], [place], [place], [id number], tel:[phone] [place] No Information 0-201 4 Ashleigh Rhys. [address] [place] [address], [address], [place], [facility], . tel:[phone] Referring Provider: Zaki Burr, [address] [place] [address], [address]. tel:[phone] [address], [place], [place], [id number], tel:[phone] [place] No Information 8-201 4 Ashleigh Rhys. [address] [place] [address], [address], [place], [facility], . tel:[phone] Referring Provider: Zaki Burr, [address] [place] [address], [address]. tel:[phone], [place], [place], [id number], tel:[phone] [place] No Information 3-201 4 Ashleigh Rhys. [address] [place] [address], [address], [place], [facility], [place]. tel:[phone] Referring Provider: Zaki Burr, [address] [place] [address], [address]. tel:[phone] [address], [place], [place], [id number], tel:[phone] [place] No Information 1201 4 Ashleigh Rhys. [address] [place] [address], [address], [place], [place], [facility], [place]. tel:[phone] Referring Provider: Zaki Burr, [facility], [address]. tel:[phone] [address], [place], [place], [id number], tel:[phone] [place] No Information 7-201 4 Ashleigh Rhys. [address] [place] [address], [address], [place], [facility], . tel:[phone] Referring Provider: Zaki Burr, [address], [address]. tel:[phone], [id number], tel:[phone] [place] No Information 4-201 4 Ashleigh Rhys. [address] [place] [address], [address], [place], [facility], . tel:[phone] Referring Provider: Zaki Burr, [address]14 [facility] [address], [place], [address]. tel:[phone], [id number], tel:[phone] [place] No Information 0-201 4 Ashleigh Rhys. [address] [place] [address], [address], [place], [facility], . tel:[phone] Referring Provider: Zaki Burr, [address], [address]. tel:[phone], [id number], tel:[phone] [place] No Information 8-201 4 Ashleigh Rhys. [address] [place] [address], [facility] [address], [place], [facility], . tel:[phone] Referring Provider: Zaki Burr, 1414 [facility] [address], [place], [address]. tel:[phone], [id number], tel:[phone] [place] Pain in joint involving shoulder region 0 3-201 4 Ashleigh Rhys. [address] [place] [address], [address], [place], [facility], . tel:[phone] Referring Provider: Zaki Burr, [address], [address]. tel:[phone] [facility] [address], [place], [place], [id number], [place] tel:[phone] [place] No Information Durga-3 0-201 4 Hauschild Jonna. [address] [place] [address], [address], [place], [place], [facility], [place]. tel:[phone] [facility] [address], [place], [id number], [place] tel:[phone] [place] No Information Durga-2 7-201 4 Hauschild Jonna. [address] [place] [address], [address], [place], [place], [facility], [place]. tel:[phone] [facility] [address] [place], [place] [address], [place], [place], [id number], tel:[phone] [place] No Information Durga-2 3-201 4 Hauschild Jonna. [address] [place] [address], [address], [place], [facility], [place]. tel:[phone] [facility] [address] [place], [place] [address], [place], [id number], [place] tel:[phone] [place] No Information Dec-1 8-201 4 Hauschild Jonna. [address] [place] [address], [address], [place], [facility], [place]. tel:[phone] [facility] [address], [place], [address], [place] tel:[phone] [place] No Information Durga-1 6-201 4 Hauschild Jonna. [address] [place] [address], [address], [place], [place], [facility], [place]. tel:[phone] [facility] [address], [place], [id number], [place] tel:[phone] [place] Pain in joint involving forearm Durga-1 0-201 4 Hauschild Jonna. [address] [place] [address], [address], [place], [facility], [place]. tel:[phone], [place], [place], [id number], tel:[phone] [place] No Information Apr-1 4-201 4 Ashleigh Rhys. [address] [place] [address], [address], [place], [facility], [place]. tel:[phone] Referring Provider: Zaki Burr, [address], [address]. tel:[phone] [address], [place], [address], [place] tel:[phone] [place] No Information Oct-1 1-201 4 Mo Cassidyi. [address] [place] [address], [address], [place], [place], [facility], [place]. tel:[phone] Referring Provider: Zaki Burr, [facility], [address]. tel:[phone], [id number], [place] tel:[phone] [place] No Information Apr-0 9-201 4 Mo Cassidyi. [address] [place] [address], [address], [place], [place], [facility], [place]. tel:[phone] Referring Provider: Zaki Burr, 1414 [facility] [address], [place], [address]. tel:[phone] [address], [place], [address], [place] tel:[phone] [place] No Information Apr-0 2-201 4 Ashleigh Rhys. [address] [place] [address], [address], [place], [place], [facility], [place]. tel:[phone] Referring Provider: Zaki Burr, [address]14 [facility] [address], [place], [address]. tel:[phone] [address], [place], [place], [address], tel:[phone] [place] No Information Mar-3 1-201 4 Ashleigh Rhys. [address] [place] [address], [address], [place], [facility], . tel:[phone] Referring Provider: Zaki Burr, [facility], [address]. tel:[phone] [address], [place], [place], [id number], tel:[phone] [place] No Information Mar-2 8-201 4 Vijaya Finley. [address] [place] [address], [address], [place], [facility], . tel:[phone] Referring Provider: Zaki Burr, [facility], [address]. tel:[phone] [address], [place], [address], [place] tel:[phone] [place] No Information Mar-2 4-201 4 Ashleigh Rhys. [address] [place] [address], [address], [place], [facility], . tel:[phone] Referring Provider: Zaki uBrr, [facility]4 [facility] [address], [place], [address]. tel:[phone] [address], [place], [address], [place] tel:[phone] [place] No Information Mar-2 1-201 4 Ashleigh Rhys. [address] [place] [address], [address], [place], [facility], . tel:[phone] Referring Provider: Zaki Burr, [address] [facility] [address], [place], [address]. tel:[phone], [place], [place], [address], [place] tel:[phone] [facility] Cervicalgia 4 Ashleigh Joiner. [address] [facility], [address], [place], [address], [place]. tel:[phone] Referring Provider: Zaki Burr, [facility], [address]. tel:[phone] Family History Family Member Type Diagnosis Age At Onset No Information Payers Payer name Insurance type Covered alliance party ID Authoriza tion(s) [place] [id number] POC [id number] [facility] [id number] Social History Type Description Quantity Date Captured [...]
--- OUTSIDE RECORDS SUMMARY | 2024-10-01 21:53 | XMS_ITS | Encounter Summary ---
Author Organization [facility] Facility Care Team Providers Care Differential Repairer Name Role Phone Sagar Walters MD Primary Care Provider [phone] ASHVIN Burr Jr., Zaki Wolf Primary Care Provide r Jonna Osorio MD Unavailable [phone] Jl Nevarez MD Unavailable [phone] Encounter Details Date Type Department Care Team (Latest Contact Info) Description 09/19/2016 Orders Only [facility] CLINCONV ProviderJoe MD [address] [place] [address] Social History Tobacco Use Types Packs/Day Years Used Date Smoking Tobacco: Never Alcohol Use Standard Drinks/Week Comments No 0 (1 standard drink = 0.6 oz pur e alcohol) Comments Unknown Sex and Gender Information Value Date Recorded Sex Assigned at Not on file Legal Sex Female 11:37 PM TOOL ANALYST Gender Identity Not on file Sexual Orientation Not on file documented as of this encounter Plan of Treatment Not on file documented as of this encounter Procedures Procedure Name Priority Date/Time Associated Diagnosis Comments CARDIOLOGY REPORT 09/19/2016 12: 00 AM TOOL ANALYST documented in this encounter Results * CARDIOLOGY REPORT (09/19/2016 12:00 AM TOOL ANALYST) Anatomical Region Laterality Modality Other Narrative 09/19/2016 12:00 AM TOOL ANALYST Ordered by an unspecified provider. Historical Provider [facility] HEIDY JUDD Final Result documented in this encounter Visit Diagnoses Not on filedocumented in this encounter Care Teams Differential Repairer Relationship Specialty Start Date End Date Sagar Walters MD [address] [address] PCP - General 03/09/09 10/28/18 Zaki Burr Jr. PA [address] [place] [address] PCP - General Physician Automotive Assembler 10/29/18 Jonna Osorio MD [address] [place] [address] Consulting Physician Family Medicine 07/02/19 06/01/22 Jl Nevarez MD [address] [place] [address] Consulting Physician Family Medicine 06/02/22 documented as of this encounter
--- OUTSIDE RECORDS SUMMARY | 2024-10-01 21:53 | XMS_ITS | Encounter Summary ---
Author Organization [facility] Facility Care Team Providers Care Phlebotomy Support Tech Name Role Phone Sagar Walters MD Primary Care Provider [phone] ASHVIN Burr Jr., Zaki Wolf Primary Care Provide r Jonna Osorio MD Unavailable [phone] Jl Nevarez MD Unavailable [phone] Encounter Details Date Type Department Care Team (Latest Contact Info) Description 02/05/2017 Orders Only [facility] CLINCONV ProviderJoe MD [address] [place] [address] Social History Tobacco Use Types Packs/Day Years Used Date Smoking Tobacco: Never Alcohol Use Standard Drinks/Week Comments No 0 (1 standard drink = 0.6 oz pur e alcohol) Comments Unknown Sex and Gender Information Value Date Recorded Sex Assigned at Not on file 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 Historical Provider [facility] CARDIAC SERVICES HEIDY JUDD Final Result documented in this encounter Visit Diagnoses Not on filedocumented in this encounter Care Teams Phlebotomy Support Tech Relationship Specialty Start Date End Date Sagar Walters MD [address] [address] PCP - General 03/09/09 10/28/18 Zaki Burr Jr., PA [address] [place] [address] PCP - General Physician Chemical Process Operator 10/29/18 Jonna Osorio MD [address] [place] [address] Consulting Physician Family Medicine 07/02/19 06/01/22 Jl Nevarez MD [address] [place] [address] Consulting Physician Family Medicine 06/02/22 documented as of this encounter
--- OUTSIDE RECORDS SUMMARY | 2024-10-01 21:53 | XMS_ITS | Clinical Summary ---
Author Organization [address] Address [address] [place] [address] Care Team Providers Care Lead Housekeeper Name Role Phone ASHVIN Burr Jr., Zaki Wolf Primary Care Provide r Jl Nevarez MD Unavailable [phone] Allergies Active Allergy Reactions Criticality Noted Date [...] Cozaar Assessment & Plan (06/30/2019 9:29 AM SIGHT MOUNTER): Fluid accumulation late May resolved. Perhaps dietary [...] pacemaker Assessment & Plan (07/26/2020 9:08 AM SIGHT MOUNTER): Normal function. No pacing. Nearing SUPRIYA. Assessment & Plan (01/12/2020 9:35 AM CDT): Check today shows normal function. Underlying rhythm sinus. Excellent lead function. Battery about 1 year. Assessment & Plan (06/30/2019 9:21 AM SIGHT MOUNTER): Check today shows normal function. No pacing excellent lead function. No arrhythmias. Assessment & Plan (12/23/2018 9:52 AM CDT): Check today shows normal function. Underlying rhythm sinus. Normal histogram. Excellent lead function and better life. No events Coronary artery disease of n ative artery of [place] heart with stable angina pectoris 12/23/2018 Assessment & Plan (07/26/2020 9:08 AM SIGHT MOUNTER): No symptoms. Continue aspirin atorvastatin carvedilol Assessment & Plan (01/12/2020 9:45 AM CDT): Recent stress test showed infarct but no ischemia. Continue carvedilol aspirin and statin. Assessment & Plan (06/30/2019 9:28 AM SIGHT MOUNTER): Patient states little more did shortness of [...] 12/23/201812/08 Assessment & Plan (06/30/2019 9:28 AM SIGHT MOUNTER): Controlled. Assessment & Plan (12/23/2018 9:57 AM CDT): Controlled. Continue current medications Cardiomyopathy 04/25/2016 05/25/2021 Assessment & Plan (12/09/2020 2:48 PM CDT): Resolved. Continue carvedilol and losartan. Ischemic cardiomyopathy 04/25/201605/23 Assessment & Plan (07/26/2020 9:06 AM SIGHT MOUNTER): Stable. Continue carvedilol and losartan Mixed hyperlipidemia 12/06/2013 021 Overview (10/27/2016): HYPERLIPIDEMIA NEC/NOS Assessment & Plan (07/26/2020 9:06 AM SIGHT MOUNTER): Continue Lipitor Assessment & Plan (01/12/2020 9:46 AM CDT): Continue atorvastatin Assessment & Plan (06/30/2019 9:29 AM SIGHT MOUNTER): Continue Lipitor 40 Assessment & Plan (12/23/2018 9:57 AM CDT): Last lipid panel near goal. Patient was shows to continue to exercise and diet Seizure ([facility]/HCC) 05/25/2021 Overview (12/27/2020): 8TH GRADE - STARING SPELLS Encounters Date Type Department Care Team Description 07/08/2024 Orders Only [facility] Medical [facility] Primary Care [address] [place] [address] [address] [place] [address] Zaki Burr Jr., ASHVIN Bilateral leg pain (Primary Dx); Chronic right-sided low back pain without sciatica 07/03/2024 5:27 PM SIGHT MOUNTER - 07/03/2024 11:59 PM SIGHT MOUNTER [place] [address] Medicare annual wellness visit, subsequent; Acquired hypothyroidism; Essential hypertension; Pure hypercholesterolemia; Seizure disorder (HCC); Vitamin D deficiency, unspecified; Need for hepatitis B screening test Discharge Disposition: Discharge to home or self care 07/03/2024 2:15 PM SIGHT MOUNTER Ancillary Procedure [facility] Cardiology [facility] [address] [address] ICD (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; Ischemic cardiomyopathy 07/03/2024 10:15 AM SIGHT MOUNTER Ancillary Procedure [facility] Imaging at [address] [address] Chronic right-sided low back pain without sciatica 07/03/2024 9:30 AM SIGHT MOUNTER Lab [facility] Outpatient Lab at [address] [address] Osteoporosis (Primary Dx); Essential hypertension 07/03/2024 Orders Only [facility] Cardiology [facility] [address] [address] Balta Ramos MD ICD (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 (Primary Dx); Nonischemic cardiomyopathy (HCC) from Last 3 Months Immunizations Immunization Administration Dates Next Due Influenza, Quadrivalent, Hig h Dose, Preservative Free, Intrr 06/06/2023,06/02/2022,04/15/2021,04/29 Influenza, Trivalent, High D ose, Split, Preservative Free, Intramuscular 04/03/2024,05/09/2019,04/24/2018,06/01 Influenza, Trivalent, IM (MDV) 05/09/2007 Influenza, Unspecified 06/06/2023 Pneumococcal Conjugate PCV 13 04/24/2018 Pneumococcal Polysaccharide PPV23 02/19/2009 Tdap 03/09/2017 Surgical History Surgery Date Site/Laterality Comments FOOT SURGERY Left VAGINAL DELIVERY X2 CYSTOSCOPY W/ LASER LITHOTRIPSY CARDIAC DEFIBRILLATOR PLACEMENT 07/23/2000 - 07/22/2001 Left MEDTRONIC CARDIAC DEFIBRILLATOR PLACEMENT 12/28/2020 Medical History Medical History Date Comments Ischemic cardiomyopathy Seizure (HCC) 8TH GRADE - STAR ING SPELLS Hyperlipemia GERD (gastroesophageal reflux disease) DIET CONTROLLED - RARE Headache Osteoarthritis Hypertension Calculus of kidney 2005 HX OF KIDNEY STONES Hypothyroidism Postmenopausal Teeth missing UPPER PARTIAL PL ATE Cardiomyopathy (HCC) 12/24/20 EF P ER ECHO 25-30% - MEDTRONIC AICD CHF (congestive heart failure) (HCC) Family History Medical History Relation Name Comments Cancer Father Heart disease Mother Breast cancer Mother's Sister Lupus Sister Relation Name Status Comments Father Mother Mother's Sister Sister Social History Tobacco Use Types Packs/Day Years [...] on file Legal Sex Female 11:37 PM SIGHT MOUNTER Gender Identity Not on file Sexual Orientation Not on file Occupation Industry Job Start Date Job End Date Retired Not on file Not on file Not on file Obstetrics History Para Term AB IAB SAB Ectopic Multiple Livin g Live Births 2 2 2 Date Outcome GA Total Labor Labor/2nd/3rd Weight Sex Type Anes PTL Hetal A1 A5 Name Clin Term Term Last Filed Vital Signs Vital Sign Reading Time Taken Comments Blood Pressure 116/70 06/16/2024 10:12 AM SIGHT MOUNTER Pulse 73 06/16/2024 10:12 AM SIGHT MOUNTER Temperature 36.1 C (97 F) 06/16/2024 10:12 AM SIGHT MOUNTER Respiratory Rate 18 06/16/2024 10:12 AM SIGHT MOUNTER Oxygen Saturation 95% 06/16/2024 10:12 AM SIGHT MOUNTER Inhaled Oxygen Concentration - - Weight 69.9 kg (154 lb) 06/16/2024 10:12 AM SIGHT MOUNTER Height 165.1 cm (5' 5 ) 06/16/2024 10:12 AM SIGHT MOUNTER Body Mass Index 25.63 06/16/2024 10:12 AM SIGHT MOUNTER Plan of Treatment Health Maintenance Due Date Last Done Comments Hepatitis B Screening 1963 Covid-19 Vaccine (2023-08 season) 2024 11/17/2021, 10/13/2020, 09/21/2020 Osteoporosis Screening-Bone Density Scan 12/08/2024 12/08/2022, 05/25/2020, 05/07/2015 Depression Screening 06/16/2025 06/16/2024, 12/12/2023, 11/05/2023, Additional history exists Fall Risk Assessment 06/16/2025 06/16/2024, 12/12/2023, 06/02/2022, Additional history exists Well Visit 65+ 06/16/2025 06/16/2024, 05/23, 06/02/2022, Additional history exists DTaP/Tdap/Td Vaccine (2 - Td or Tdap) 03/09/2027 03/09/2017 Pneumococcal vaccine 65+ Completed 04/24/2018, 01/22 Influenza Vaccine Completed 04/03/2024, , 06/06/2023, Additional history exists Zoster Vaccine Discontinued Medical Devices Implanted Type Area System Software Developer Device Identifier Shelf Expiration Date Model / Serial / Lot Icd-05/23/2001 Implanted: 001 by Luciano Washburn MD (Quantity not on file) ICD Left: Chest Medtronic Med[employer] [id number] Visia Af Mri Surescan [id number] Defibrillator Cardiac - [id number] - [id number] Implanted:Qty: 1 on 12/28/2020 by Luciano Washburn MD at [facility] ICD [employer] Inc [id number] 04/05/2021 [id number] / [id number] / Procedures Procedure Name Priority Date/Time Associated Diagnosis Comments XR SPINE LUMBAR COMPLETE 4 OR MORE VIEWS Schedule Routine, Read Routine (OP Routine) 07/03/2024 10:01 AM SIGHT MOUNTER Chronic right-sided low back pain without sciatica DIFFERENTIAL AUTO Routine 07/03/2024 9:0 0 AM SIGHT MOUNTER Medicare annual wellness visit, subsequent Essential hypertension Pure hypercholesterolemia Seizure disorder (HCC) TSH Routine 07/03/2024 9:00 AM SIGHT MOUNTER Medicare annual wellness visit, subsequent Acquired hypothyroidism [...] Complete 4 Or More (07/03/2024 10:01 AM SIGHT MOUNTER) Anatomical Region Laterality Modality Spine N/A Digital Radiogra phy 07/06/2024 2:43 PM SIGHT MOUNTER Narrative 07/06/2024 2:46 PM SIGHT MOUNTER EXAM DESCRIPTION: XR SPINE LUMBAR 4 OR MORE VIEWS REASON FOR STUDY: R lower back pain x 1 yr Pt complains of chronic lbp. No spine surgery. No known injury FINDINGS: Four views submitted without comparison. No acute fractures are identified. There is mild rotary dextroscoliosis of the upper lumbar spine. There is xeui-jc-ctdspzjf L1-L5 degenerative disc disease, greatest at L2-L3. Inferior lumbar facet osteoarthritis is present. There is mild bilateral hip osteoarthritis. Pacer defibrillator is in place. Arterial atherosclerosis is noted. IMPRESSION: Ttyg-yq-qyzixhts L1-L5 degenerative disc disease, greatest at L2-L3 with inferior lumbar facet osteoarthritis. Mild rotary dextroscoliosis of the upper lumbar spine. THIS IS AN ELECTRONICALLY VERIFIED FINAL REPORT 07/06/2024 2:46 PM - Electronically signed by Sonu Rivera M.D. T: Report ID: [id number] Reading Location: [id number] Procedure Note Sonu Rivera MD - 07/06/2024 EXAM DESCRIPTION: XR SPINE LUMBAR 4 OR MORE VIEWS REASON FOR STUDY: R lower back pain x 1 yr Pt complains of chronic lbp. No spine surgery. No known injury FINDINGS: Four views submitted without comparison. No acute fractures are identified. There is mild rotary dextroscoliosisof the upper lumbar spine. There is zwcx-gq-tldufwyh L1-L5 degenerative disc disease, greatest at L2-L3. Inferior lumbar facet osteoarthritis ispresent. There is mild bilateral hip osteoarthritis. Pacer defibrillator is inplace. Arterial atherosclerosis is noted. IMPRESSION: Dvqa-in-momipadt L1-L5 degenerative disc disease, greatest at L2-L3 with inferior lumbar facet osteoarthritis. Mild rotary dextroscoliosis of the upper lumbar spine. THIS IS AN ELECTRONICALLY VERIFIED FINAL REPORT 07/06/2024 2:46 PM - Electronically signed by Sonu Rivera M.D. T: Report ID: [id number] Reading Location: [id number] ASHVIN Mckeon Jr. IMG XR PROCEDURES Fin al Result * Differential, auto (07/03/2024 9:00 AM SIGHT MOUNTER) Neutrophil abs 4.9 1.5 - 6.5 K/cumm Imm gran abs 0.0 0.0 - 0.1 K/cumm [facility] Lymphocyte abs 1.1 0.8 - 3.3 K/cumm [facility] Monocyte abs 0.7 0.2 - 0.8 K/cumm [facility] Eosinophil abs 0.1 0.0 - 0.5 K/cumm [facility] Basophil abs 0.0 0.0 - 0.1 K/cumm [facility] Neutrophil pct 71.9 % [facility] Comment: Interpretive Data Percent cell count reference ranges are not reported, since discordance with absolute values may lead to misinterpretation of CBC data. Current Interpretive Data was last revised on 2017. Imm gran pct 0.3 % [facility] Comment: Interpretive Data Percent cell count reference ranges are not reported, since discordance with absolute values may lead to misinterpretation of CBC data. Current Interpretive Data was last revised on 2017. Lymphocyte pct 16.1 % [facility] Comment: Interpretive Data Percent cell count reference ranges are not reported, since discordance with absolute values may lead to misinterpretation of CBC data. Current Interpretive Data was last revised on 2017. Monocyte pct 9.8 % [facility] Comment: Interpretive Data Percent cell count reference ranges are not reported, since discordance with absolute values may lead to misinterpretation of CBC data. Current Interpretive Data was last revised on 2017. Eosinophil pct 1.3 % [facility] Comment: Interpretive Data Percent cell count reference ranges are not reported, since discordance with absolute values may lead to misinterpretation of CBC data. Current Interpretive Data was last revised on 2017. Basophil pct 0.6 % [facility] Comment: Interpretive Data Percent cell count reference ranges are not reported, since discordance with absolute values may lead to misinterpretation of CBC data. Current Interpretive Data was last revised on 2017. Blood 07/03/2024 9:00 AM SIGHT MOUNTER 07/03/2024 6:31 PM SIGHT MOUNTER us ASHVIN Mckeon Jr. LAB BLOOD ORDERABLES Final Result [facility] [address] [address] [place] [address] * (ABNORMAL) CBC with auto differential (07/03/2024 9:00 AM SIGHT MOUNTER) WBC 6.8 3.8 - 9.9 K/cumm Hgb 11.6(L) 11.9 - 15.5 g/dL [facility] Hct 38.0 35.6 - 45.5 % [facility] Plt 263 150 - 400 K/cumm [facility] MPV 10.8 9.1 - 12.3 fL [facility] RBC 3.78(L) 3.90 - 5.20 M/cumm [facility] MCV 100.5(H) 81.3 - 96.4 fL [facility] MCH 30.7 27.1 - 33.3 pg [facility] MCHC 30.5(L) 32.3 - 35.7 g/dL [facility] RDW CV 13.7 11.1 - 14.9 % [facility] RDW SD 50.7(H) 35.7 - 48.1 fL [facility] NRBC abs 0.00 0.00 - 0.01 K/cumm [facility] Blood 07/03/2024 9:00 AM SIGHT MOUNTER 07/03/2024 6:31 PM SIGHT MOUNTER ASHVIN Mckeno Jr. LAB BLOOD ORDERABLES Final Result Performing Organization Address [facility] de Phone Number [facility] [address] [address] [place] [address] * Vitamin D 25 hydroxy (07/03/2024 9:00 AM SIGHT MOUNTER) [facility] Vitamin D 25-OH 38 30 - 80 ng/mL Blood 07/03/2024 9:00 AM SIGHT MOUNTER 07/03/2024 6:31 PM SIGHT MOUNTER ASHVIN Mckeon Jr. LAB BLOOD ORDERABLES Final Result Performing Organization Address [facility] Co de Phone Number [facility] [address] [address] [facility] [place] [address] * Hepatitis B surface antibody (immune status) Blood (07/03/2024 9:00 AM SIGHT MOUNTER) [facility] HBsAb (immune status) Nonreactive Comment: Interpretive Data [...] revised on 19. Blood 07/03/2024 9:00 AM SIGHT MOUNTER 07/03/2024 6:31 PM SIGHT MOUNTER ASHVIN Mckeon Jr. LAB MICROBIOLOGY - GE NERAL ORDERABLES Final Result [facility] [address] [address] [place] [address] * T3, free (07/03/2024 9:00 AM SIGHT MOUNTER) Free T3 2.3 2.0 - 4.4 pg/mL Blood 07/03/2024 9:00 AM SIGHT MOUNTER 07/03/2024 6:31 PM SIGHT MOUNTER ASHVIN Mckeon Jr. LAB BLOOD ORDERABLES Final Result Performing Organization Address [facility] Co de Phone Number [facility] [address] [facility] [place] [address] * TSH (07/03/2024 9:00 AM SIGHT MOUNTER) Thyroid Stimulating Hormone 1.18 0.30 - 4.20 mcIUnit/mL Blood 07/03/2024 9:00 AM SIGHT MOUNTER 07/03/2024 6:31 PM SIGHT MOUNTER ASHVIN Mckeon Jr. LAB BLOOD ORDERABLES Final Result Performing Organization Address [facility] Co de Phone Number [facility] [address] [facility] [place] [address] * T4, free (07/03/2024 9:00 AM SIGHT MOUNTER) Free T4 1.13 0.90 - 1.70 ng/dL Blood 07/03/2024 9:00 AM SIGHT MOUNTER 07/03/2024 6:31 PM SIGHT MOUNTER ASHVIN Mckeon Jr. LAB BLOOD ORDERABLES Final Result Performing Organization Address City/[facility]/ZIP Co de Phone Number [facility] [address] [address] [place] [place] [address] * (ABNORMAL) Phenytoin level, total (07/03/2024 9:00 AM SIGHT MOUNTER) Phenytoin 6.0(L) 10.0 - 20.0 mcg/mL Blood 07/03/2024 9:00 AM SIGHT MOUNTER 07/03/2024 6:31 PM SIGHT MOUNTER ASHVIN Mckeon Jr. LAB BLOOD ORDERABLES Final Result Performing Organization Address [facility] Phone Number [facility] [address] [address] [place] [address] * Dexa Axial Skeleton Bone Density 1 Or 2 Site (12/08/2022 12:38 PM CDT) Anatomical Region Laterality Modality Body N/A Mammography 12/09/2022 6:21 PM CDT Narrative 12/09/2022 6:23 PM CDT EXAM DESCRIPTION: DEXA AXIAL SKELETON BONE DENSITY 1 OR MORE SITES REASON FOR STUDY: 77 y/o year old F with given history of screening. System Software Developer/Model: Modelinia A (S/N [id number]) CLINICAL INFORMATION: Current height: 65 inches Maximum [...] Gabriella Garcia M.D. TW: TW Report ID: [id number] Reading Location: [place] [address] Procedure Note Gabriella Garcia MD - 12/09/2022 EXAM DESCRIPTION: DEXA AXIAL SKELETON BONE DENSITY 1 OR MORE SITES REASON FOR STUDY: 77 y/o year old F with given history of screening. System Software Developer/Model: Modelinia A (S/N [id number]) CLINICAL INFORMATION: Current height: 65 inches Maximum [...] Garcia M.D. TW: CARLOS MANUEL Report ID: [id number] Reading Location: [id number] us ASHVIN Mckeon Jr. IMG DXA PROCEDURES Fi nal Result from Last 3 Months or Most Recently Relevant to Health Maintenance Insurance [employer] CHO[employer] MEDICARE PPO Care Teams Lead Housekeeper Relationship Specialty Start Date End Date Zaki Burr Jr., PA [address] [place] [address] [phone] PCP - General Physician Cargo Service Supervisor 10/29/18 Jl Nevarez MD [address] [place] [address] [phone] Consulting Physician Family Medicine 06/02/22
--- OUTSIDE RECORDS SUMMARY | 2024-10-01 21:53 | XMS_ITS | Encounter Summary ---
Author Organization [facility] Facility Care Team Providers Care Application Trainer Name Role Phone Sagar Walters MD Primary Care Provider [phone] ASHVIN Burr Jr., Zaki Wolf Primary Care Provide r Jonna Osorio MD Unavailable [phone] Jl Nevarez MD Unavailable [phone] Encounter Details Date Type Department Care Team (Latest Contact Info) Description 06/24/2018 Orders Only [facility]INCON[facility] ProviderJoe MD [address] [place] [id number] Social History Tobacco Use Types Packs/Day Years Used Date Smoking Tobacco: Never Alcohol Use Standard Drinks/Week Comments No 0 (1 standard drink = 0.6 oz pur e alcohol) Comments Unknown Sex and Gender Information Value Date Recorded Sex Assigned at Not on file Legal Sex Female 11:37 PM OCCASIONAL BABYSITTER Gender Identity Not on file Sexual Orientation Not on file documented as of this encounter Plan of Treatment Not on file documented as of this encounter Procedures Procedure Name Priority Date/Time Associated Diagnosis Comments CARDIOLOGY REPORT 06/24/2018 12: 00 AM OCCASIONAL BABYSITTER documented in this encounter Results * CARDIOLOGY REPORT (06/24/2018 12:00 AM OCCASIONAL BABYSITTER) Anatomical Region Laterality Modality Other Narrative 06/24/2018 12:00 AM OCCASIONAL BABYSITTER Ordered by an unspecified provider. Historical Provider [facility] HEIDY JUDD Final Result documented in this encounter Visit Diagnoses Not on filedocumented in this encounter Care Teams Application Trainer Relationship Specialty Start Date End Date Sagar Walters MD [address] [address] PCP - General 03/09/09 10/28/18 Zaki Burr Jr. PA [address] [place] [address] PCP - General Physician Rewriter 10/29/18 Jonna Osorio MD [address] [place] [address] Consulting Physician Family Medicine 07/02/19 06/01/22 Jl Nevarez MD [address] [place] [address] Consulting Physician Family Medicine 06/02/22 documented as of this encounter
[2024-10-01 21:57] VITALS: BP 115/67; PULSE 77; RESP 16; TEMP 36.4; O2SAT 100
[2024-10-01 22:40] VITALS: BP 133/60; PULSE 66; RESP 17; O2SAT 95
--- NOTE | 2024-10-01 22:49 | ED.FALL ---
HPI - Fall General Chief Complaint: Fall Stated Complaint: fall- left hand/wrist injury Time Seen by Provider: 10/01/24 22:41 Source: patient Mode of arrival: ambulatory Limitations: no limitations History of Present Illness HPI Narrative: This is an 79-year-old female who presents to the ED for chief complaint of a fall with left wrist injury today. Patient states that she turned her head too quickly while walking down the stairs and accidentally lost her balance. States that this caused her to fall down onto the left wrist. She reports immediate pain to the wrist but no other injury. Denies head injury or back injury. Denies LOC. states that she does not have any more dizziness or lightheadedness. Denies preceding chest pain, shortness of breath or recent illness. Related Data Allergies Allergy/AdvReac Type Severity Reaction Status Date / Time No Known Allergies Allergy Verified 10/01/24 22:41 Review of Systems Review of Systems: All systems as dictated in HPI Exam Narrative: GENERAL: Well-appearing, well-nourished, and in no acute distress. HEAD: Normocephalic, atraumatic. EYES: PERRLA and EOMI. ENT: Nares clear, no rhinorrhea or epistaxis. Mucous membranes moist. Oropharynx without tonsillar hypertrophy exudate or other lesions. NECK: Supple. No adenopathy or masses. CHEST: No respiratory distress. Clear to auscultation. No wheezes rales or rhonchi HEART: Regular rate and rhythm. No murmur heard. Normal peripheral pulses. ABDOMEN: Soft, nontender, nondistended, normal active bowel sounds. MSK: Mild deformity to the left wrist. Neurovascularly intact distally. Tenderness to the left wrist. MSK exam is otherwise intact SKIN: Warm, dry, no rash. NEURO: Alert and oriented x4. No focal deficits. PSYCH: Normal mood and affect. Course Vital Signs Vital signs: Vital Signs Temperature 97.5 F L 10/01/24 21:51 Pulse Rate 77 10/01/24 21:51 Respiratory Rate 16 10/01/24 21:51 Blood Pressure 115/67 10/01/24 21:51 Pulse Oximetry 100 10/01/24 21:51 Oxygen Delivery Room Air 10/01/24 21:51 Temperature 97.5 F L 10/01/24 21:57 Pulse Rate 73 03/12/25 23:27 Respiratory Rate 18 10/01/24 23:27 Blood Pressure 125/59 L 10/01/24 23:27 Pulse Oximetry 100 10/01/24 23:27 Oxygen Delivery Room Air 10/01/24 21:57 Procedures Orthopedic Fracture Reduction Fracture #1: Fracture Reduction date: 10/01/24 Fracture Reduction time: 23:29 Time Out Performed: No Side: left Fracture Reduction Location: radius Analgesia: hematoma block Pre-Procedure Neuro Vascular Exam: normal Technique: direct manipulation and traction/counter-traction Post-reduction neuro exam: intact Post-reduction vascular exam: intact Splint Applied: Yes Patient Tolerated Procedure: well MDM - Fall MDM Narrative Medical decision making narrative: This is a 79-year-old female who presents to the ED for chief complaint of fall and left wrist injury today. Fall was mechanical in nature and resulted in left distal radius fracture. Vitals are normal. Exam remarkable for the above there is a mild deformity to the left wrist. Left wrist x-rays: IMPRESSION: Fracture of the distal metaphysis of the left radius with fracture of the ulnar styloid. These amount of posterior angulation and minimal displacement on x-rays today. She was given hematoma block and then used manual traction while placing sugar-tong splint for minor fracture reduction. She tolerated the procedure well. Ortho referral given. Short course of [place] given for pain control. Shared decision making regarding further workup today. She would like to avoid any kind of metabolic workup today. She feels well enough to go home at this point. Patient will be discharged in stable condition. Supportive measures discussed and return precautions given. Patient is understanding and agreeable with plan for discharge with ortho follow-up. Discharge Plan Discharge Clinical Impression: Distal radius fracture, left Patient Disposition: Home, Self-Care Condition: Stable Instructions: Antibiotic Form, Splint Care (ED) Additional Instructions: Exam and imaging today show left wrist fracture. Please follow-up with ortho this week. If you have any new or worsening symptoms please return to the ER for further evaluation. Patient Language: Chilean Prescriptions: New hydrocodone-acetaminophen 5-325 mg tablet 1 tablet PO Q8H PRN (Reason: pain) Qty: 14 0RF Follow-up/Referrals: Phani Meade MD [Physician] - PHYSICIAN,REFERRAL COORDINATOR [Primary Care Provider] - Time of Disposition: 23:32
[2024-10-01 23:27] VITALS: BP 125/59; PULSE 73; RESP 18; O2SAT 100
--- OUTSIDE RECORDS SUMMARY | 2024-10-02 00:05 | XMS_ITS | Encounter Summary ---
Author Organization [facility] Facility Care Team Providers Care Brush Fabrication Supervisor Name Role Phone Sagar Walters MD Primary Care Provider [phone] ASHVIN Burr Jr., Zaki Wolf Primary Care Provide r Jonna Osorio MD Unavailable [phone] Jl Nevarez MD Unavailable [phone] Encounter Details Date Type Department Care Team (Latest Contact Info) Description 03/18/2018 Orders Only [facility] CLINCONV ProviderJoe MD [address] [place] [address] Social History Tobacco Use Types Packs/Day Years Used Date Smoking Tobacco: Never Alcohol Use Standard Drinks/Week Comments No 0 (1 standard drink = 0.6 oz pur e alcohol) Comments Unknown Sex and Gender Information Value Date Recorded Sex Assigned at Not on file 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 Gender Identity Not on file Sexual Orientation [...] on filedocumented in this encounter Care Teams Brush Fabrication Supervisor Relationship Specialty Start Date End Date Sagar Walters MD [address] [address] PCP - General 03/09/09 10/28/18 Zaki Burr Jr., PA [address] [place] [address] PCP - General Physician Help Desk Operator 10/29/18 Jonna Osorio MD [address] [place] [address] Consulting Physician Family Medicine 07/02/19 06/01/22 Jl Nevarez MD [address] [place] [address] Consulting Physician Family Medicine 06/02/22 documented as of this encounter
--- OUTSIDE RECORDS SUMMARY | 2024-10-02 00:05 | XMS_ITS | Continuity of Care Document ---
Author Organization [facility] Address [address] [place] [address] [address] [place] [address] Phone Care Team Providers Care Performance Specialist Name Role Phone Ashleigh PT, , Rhys [...] Date Provider Providers Copied on Encounter [facility], [address] [facility] [address], [place], [place], [id number], tel:[phone] [place] No Information 0-201 4 Ashleigh Rhys. [address] [place] [address], [address], [place], [facility], . tel:[phone] Referring Provider: Zaki Burr, [address] [place] [address], [address]. tel:[phone] [address], [place], [place], [id number], tel:[phone] [place] No Information 8-201 4 Ashleigh Rhys. [address] [place] [address], [address], [place], [facility], . tel:[phone] Referring Provider: Zaki Burr, [address] [place] [address], [address]. tel:[phone], [place], [place], [address], tel:[phone] [place] No Information 3-201 4 Ashleigh Rhys. [address] [place] [address], [address], [place], [facility], [place]. tel:[phone] Referring Provider: Zaki Burr, [address] [place] [address], [address]. tel:[phone] [address], [place], [place], [id number], tel:[phone] [place] No Information 1201 4 Ashleigh Rhys. [address] [place] [address], [address], [place], [place], [facility], [place]. tel:[phone] Referring Provider: Zaki Burr, [facility], [address]. tel:[phone] [address], [place], [place], [address], tel:[phone] [place] No Information 7-201 4 Ashleigh Rhys. [address] [place] [address], [address], [place], [facility], . tel:[phone] Referring Provider: Zaki Burr, [address], [address]. tel:[phone], [id number], tel:[phone] [place] No Information 4-201 4 Ashleigh Rhys. [address] [place] [address], [address], [place], [facility], . tel:[phone] Referring Provider: Zaki Burr, [address] [facility] [address], [place], [address]. tel:[phone], [id number], tel:[phone] [place] No Information 0-201 4 Ashleigh Rhys. [address] [place] [address], [address], [place], [facility], . tel:[phone] Referring Provider: Zaki Burr, [address], [address]. tel:[phone], [id number], tel:[phone] [place] No Information 8-201 4 Ashleigh Rhys. [address] [place] [address], [facility] [address], [place], [facility], . tel:[phone] Referring Provider: Zaki Burr, [address] [facility] [address], [place], [address]. tel:[phone], [id number], tel:[phone] [place] Pain in joint involving shoulder region 0 3-201 4 Ashleigh Rhys. [address] [place] [address], [address], [place], [facility], . tel:[phone] Referring Provider: Zaki Burr, [address], [address]. tel:[phone] [facility] [address], [place], [place], [address], [place] tel:[phone] [place] No Information Durga-3 0-201 4 Hauschild Jonna. [address] [place] [address], [address], [place], [place], [facility], [place]. tel:[phone] [facility] [address], [place], [place], [address], [place] tel:[phone] [place] No Information Durga-2 7-201 4 Hauschild Jonna. [address] [place] [address], [address], [place], [place], [facility], [place]. tel:[phone] [facility] [address] [place], [place] [address], [place], [place], [address], tel:[phone] [place] No Information Durga-2 3-201 4 Hauschild Jonna. [address] [place] [address], [address], [place], [facility], [place]. tel:[phone] [facility] [address] [place], [place] [address], [place], [place], [address], [place] tel:[phone] [place] No Information Dec-1 8-201 4 Hauschild Jonna. [address] [place] [address], [address], [place], [facility], [place]. tel:[phone] [facility] [address], [place], [place], [address], [place] tel:[phone] [place] No Information Durga-1 6-201 4 Hauschild Jonna. [address] [place] [address], [address], [place], [facility], [place]. tel:[phone] [facility] [address], [place], [place], [address], [place] tel:[phone] [place] Pain in joint involving forearm Durga-1 0-201 4 Hauschild Jonna. [address] [place] [address], [address], [place], [facility], [place]. tel:[phone], [place], [place], [address], tel:[phone] [place] No Information Apr-1 4-201 4 Ashleigh Rhys. [address] [place] [address], [address], [place], [facility], [place]. tel:[phone] Referring Provider: Zaki Burr, [address], [address]. tel:[phone] [address], [place], [id number], [place] tel:[phone] [place] No Information Oct-1 1-201 4 Mo Cassidyi. [address] [place] [address], [address], [place], [facility], [place]. tel:[phone] Referring Provider: Zaki Burr, [facility], [address]. tel:[phone], [id number], [place] tel:[phone] [place] No Information Apr-0 9-201 4 Mo Cassidyi. [address] [place] [address], [address], [place], [facility], [place]. tel:[phone] Referring Provider: Zaki Burr, [address] [facility] [address], [address]. tel:[phone], [id number], [place] tel:[phone] [place] No Information Apr-0 2-201 4 Ashleigh Rhys. [address] [place] [address], [address], [place], [facility], [place]. tel:[phone] Referring Provider: Zaki Burr, [address] [facility] [address], [address]. tel:[phone] [address], [place], [place], [address], tel:[phone] [place] No Information Mar-3 1-201 4 Ashleigh Rhys. [address] [place] [address], [address], [place], [facility], . tel:[phone] Referring Provider: Zaki Burr, [facility], [address]. tel:[phone] [address], [place], [place], [address], tel:[phone] [place] No Information Mar-2 8-201 4 Vijaya Finley. [address] [place] [address], [address], [place], [facility], . tel:[phone] Referring Provider: Zaki Burr, [facility], [address]. tel:[phone] [address], [place], [id number], [place] tel:[phone] [place] No Information Mar-2 4-201 4 Ashleigh Rhys. [address] [place] [address], [address], [place], [facility], . tel:[phone] Referring Provider: Zaki Burr, [facility]4 [facility] [address], [address]. tel:[phone] [address], [place], [place], [address], [place] tel:[phone] [place] No Information Mar-2 1-201 4 Ashleigh Rhys. [address] [place] [address], [address], [place], [facility], . tel:[phone] Referring Provider: Zaki Burr, [address] [facility] [address], [place], [address]. tel:[phone], [place], [place], [address], [place] tel:[phone] Eric Cervicalgia 4 Ashleigh Joiner. [address] [facility], [address], [place], [address], [place]. tel:[phone] Referring Provider: Zaki Burr, [facility], [address]. tel:[phone] Family History Family Member Type Diagnosis Age At Onset No Information Payers Payer name Insurance type Covered green party ID Authoriza tion(s) [place] [id number] POC [id number] [facility] [id number] Social History Type Description Quantity Date Captured [...]
--- OUTSIDE RECORDS SUMMARY | 2024-10-02 00:05 | XMS_ITS | Continuity of Care Document ---
Author Organization [facility] Address [address] [place] [address] [place] [address] Phone Care Team Providers Care Lockstitch Machine Operator Name Role Phone Gracia Talbot Unavailable Unavailable Procedures Procedure Date Eye Exam & Treatment Refraction No Charge Glasses Check Eye Exam & Treatment Refraction Advance Directives Directive Yes / No Effective Date File Name No Information Encounters Encounter Description Practice Location Reason(s) For Visit Diagnoses Date Provider Providers Copied on Encounter [facility], [address] [place] [address] [address], [place], [place], [id number], [place] tel:[phone] [facility] No Information 0-200 9 Dahiana Harrington [address] [facility] [place] , [address], [place], [place], [facility], [place]. tel:[phone] [facility], [address] [place] [address] [address], [place], [place], [address], [place] tel:[phone] [facility] [place] No Information 0-200 7 Dahiana Harrington [address] [facility] , [address], [place], [address], [place]. tel:[phone] [facility], [address] [place] [address] [address], [place], [place], [address], [place] tel:[phone] [facility] [place] No Information 9-200 7 Dahiana Harrington [address] , [address], [place], [address], [place]. tel:[phone] Family History Family Member Type Diagnosis Age At Onset No Information Payers Payer name Insurance type Covered republican ID Authoriza tion(s) No Information Social History [...]
--- OUTSIDE RECORDS SUMMARY | 2024-10-02 00:05 | XMS_ITS | Encounter Summary ---
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 Gender Identity Not on file Sexual Orientation Not on file Occupation Industry Job Start Date Job End Date Retired Not on file Not on file Not on file documented as of this encounter Plan of Treatment Not on file documented as of this encounter Visit Diagnoses Not on filedocumented in this encounter Care Teams Lamp Shade Assembler Relationship Specialty Start Date End Date Zaki Burr Jr., PA [address] [address] PCP - General Physician Health Information Assistant 10/29/18 Jl Nevarez MD [address] [address] Consulting Physician Family Medicine 06/02/22 documented as of this encounter
--- OUTSIDE RECORDS SUMMARY | 2024-10-02 00:05 | XMS_ITS | Clinical Summary ---
Author Organization [facility] Address [address] [place] [address] Care Team Providers Care Acid Remover Name Role Phone Unavailable Primary Care Provider [...]
--- OUTSIDE RECORDS SUMMARY | 2024-10-02 00:05 | XMS_ITS | Encounter Summary ---
Author Organization [facility] Facility Care Team Providers Care Student Financial Aid Manager Name Role Phone Sagar Walters MD Primary Care Provider [phone] ASHVIN Burr Jr., Zaki Wolf Primary Care Provide r Jonna Osorio MD Unavailable [phone] Jl Nevarez MD Unavailable [phone] Encounter Details Date Type Department Care Team (Latest Contact Info) Description 06/24/2018 Orders Only [facility] CLINCONV ProviderJoe MD [address] [place] [address] Social History Tobacco Use Types Packs/Day Years Used Date Smoking Tobacco: Never Alcohol Use Standard Drinks/Week Comments No 0 (1 standard drink = 0.6 oz pur e alcohol) Comments Unknown Sex and Gender Information Value Date Recorded Sex Assigned at Not on file 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 Historical Provider [facility] HEIDY JUDD Final Result documented in this encounter Visit Diagnoses Not on filedocumented in this encounter Care Teams Student Financial Aid Manager Relationship Specialty Start Date End Date Sagar Walters MD [address] [address] PCP - General 03/09/09 10/28/18 Zaki Burr Jr. PA [address] [place] [address] PCP - General Physician Deck Steward 10/29/18 Jonna Osorio MD [address] [place] [address] Consulting Physician Family Medicine 07/02/19 06/01/22 Jl Nevarez MD [address] [place] [address] Consulting Physician Family Medicine 06/02/22 documented as of this encounter
--- OUTSIDE RECORDS SUMMARY | 2024-10-02 00:05 | XMS_ITS | Encounter Summary ---
Author Organization [facility] Facility Care Team Providers Care Gaming Director Name Role Phone Sagar Walters MD Primary Care Provider [phone] ASHVIN Burr Jr., Zaki Wolf Primary Care Provide r Jonna Osorio MD Unavailable [phone] Jl Nvearez MD Unavailable [phone] Encounter Details Date Type Department Care Team (Latest Contact Info) Description 01/10/2016 Orders Only [facility] CLINCONV ProviderJoe MD [address] [place] [address] Social History Tobacco Use Types Packs/Day Years Used Date Smoking Tobacco: Never Alcohol Use Standard Drinks/Week Comments No 0 (1 standard drink = 0.6 oz pur e alcohol) Comments Unknown Sex and Gender Information Value Date Recorded Sex Assigned at Not on file 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
--- OUTSIDE RECORDS SUMMARY | 2024-10-02 00:05 | XMS_ITS | Encounter Summary ---
Author Organization [facility] Facility Care Team Providers Care Granulator Machine Operator Name Role Phone Sagar Walters MD Primary Care Provider [phone] ASHVIN Burr Jr., Zaki Wolf Primary Care Provide r Jonna Osorio MD Unavailable [phone] Jl Nevarez MD Unavailable [phone] Encounter Details Date Type Department Care Team (Latest Contact Info) Description 01/20/2016 Orders Only [facility] CLINCONV ProviderJoe MD [address] [place] [address] Social History Tobacco Use Types Packs/Day Years Used Date Smoking Tobacco: Never Alcohol Use Standard Drinks/Week Comments No 0 (1 standard drink = 0.6 oz pur e alcohol) Comments Unknown Sex and Gender Information Value Date Recorded Sex Assigned at Not on file 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 Gender Identity Not on file Sexual Orientation [...] on filedocumented in this encounter Care Teams Granulator Machine Operator Relationship Specialty Start Date End Date Sagar Walters MD [address] [address] PCP - General 03/09/09 10/28/18 Zaki Burr Jr., PA [address] [place] [address] PCP - General Physician Paratransit Operator 10/29/18 Jonna Osorio MD [address] [place] [address] Consulting Physician Family Medicine 07/02/19 06/01/22 Jl Nevarez MD [address] [place] [address] Consulting Physician Family Medicine 06/02/22 documented as of this encounter
--- OUTSIDE RECORDS SUMMARY | 2024-10-02 00:05 | XMS_ITS | Encounter Summary ---
Author Organization [facility] Facility Care Team Providers Care Wood Preparation Supervisor Name Role Phone Sagar Walters MD Primary Care Provider [phone] ASHVIN Burr Jr., Zaki Wolf Primary Care Provide r Jonna Osorio MD Unavailable [phone] Jl Nevarez MD Unavailable [phone] Encounter Details Date Type Department Care Team (Latest Contact Info) Description 12/10/2017 Orders Only [facility] CLINCONV ProviderJoe MD [address] [place] [address] Social History Tobacco Use Types Packs/Day Years Used Date Smoking Tobacco: Never Alcohol Use Standard Drinks/Week Comments No 0 (1 standard drink = 0.6 oz pur e alcohol) Comments Unknown Sex and Gender Information Value Date Recorded Sex Assigned at Not on file 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 Gender Identity Not on file Sexual [...] on filedocumented in this encounter Care Teams Wood Preparation Supervisor Relationship Specialty Start Date End Date Sagar Walters MD [address] [address] PCP - General 03/09/09 10/28/18 Zaki Burr Jr., PA [address] [place] [address] PCP - General Physician Commutator Inspector 10/29/18 Jonna Osorio MD [address] [place] [address] Consulting Physician Family Medicine 07/02/19 06/01/22 Jl Nevarez MD [address] [place] [address] Consulting Physician Family Medicine 06/02/22 documented as of this encounter
--- OUTSIDE RECORDS SUMMARY | 2024-10-02 00:06 | XMS_ITS | Encounter Summary ---
Author Organization [facility] Facility Care Team Providers Care Rayon Coner Name Role Phone Sagar Walters MD Primary Care Provider [phone] ASHVIN Burr Jr., Zaki Wolf Primary Care Provide r Jonna Osorio MD Unavailable [phone] Jl Nevarez MD Unavailable [phone] Encounter Details Date Type Department Care Team (Latest Contact Info) Description 05/15/2016 Orders Only [facility] CLINCONV ProviderJoe MD [address] [place] [address] Social History Tobacco Use Types Packs/Day Years Used Date Smoking Tobacco: Never Alcohol Use Standard Drinks/Week Comments No 0 (1 standard drink = 0.6 oz pur e alcohol) Comments Unknown Sex and Gender Information Value Date Recorded Sex Assigned at Not on file 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 Historical Provider [facility] HEIYD JUDD Final Result documented in this encounter Visit Diagnoses Not on filedocumented in this encounter Care Teams Rayon Coner Relationship Specialty Start Date End Date Sagar Walters MD [address] [address] PCP - General 03/09/09 10/28/18 Zaki Burr Jr., PA [address] [place] [address] PCP - General Physician Mobile Application Development Lead 10/29/18 Jonna Osorio MD [address] [place] [address] Consulting Physician Family Medicine 07/02/19 06/01/22 Jl Nevarez MD [address] [place] [address] Consulting Physician Family Medicine 06/02/22 documented as of this encounter
--- OUTSIDE RECORDS SUMMARY | 2024-10-02 00:06 | XMS_ITS | Referral Summary ---
Author Organization [address] Address [address] [place] [address] Care Team Providers Care Order Management Specialist Name Role Phone ASHVIN Burr Jr., Zaki Wolf Primary Care Provide r Jl Nevarez MD Unavailable Encounters Date Type Department Care Team Description 07/08/[address] [facility] Medical Group Primary Care [facility] [address] [address] Zaki Burr Jr., PA Bilateral leg pain (Primary Dx); Chronic right-sided low back pain without sciatica from Last 3 Months Allergies Active Allergy [...] diastolic as well. Blood pressure control. Continue Vianey Assessment & Plan (06/30/2019 9:29 AM GLASS FORMING ENGINEER): Fluid accumulation late May resolved. Perhaps dietary [...] pacemaker Assessment & Plan (07/26/2020 9:08 AM GLASS FORMING ENGINEER): Normal function. No pacing. Nearing SUPRIYA. Assessment & Plan (01/12/2020 9:35 AM CDT): Check today shows normal function. Underlying rhythm sinus. Excellent lead function. Battery about 1 year. Assessment & Plan (06/30/2019 9:21 AM GLASS FORMING ENGINEER): Check today shows normal function. No pacing excellent lead function. No arrhythmias. Assessment & Plan (12/23/2018 9:52 AM CDT): Check today shows normal function. Underlying rhythm sinus. Normal histogram. Excellent lead function and better life. No events Coronary artery disease of n ative artery of [place] heart with stable angina pectoris 12/23/2018 Assessment & Plan (07/26/2020 9:08 AM GLASS FORMING ENGINEER): No symptoms. Continue aspirin atorvastatin carvedilol Assessment & Plan (01/12/2020 9:45 AM CDT): Recent stress test showed infarct but no ischemia. Continue carvedilol aspirin and statin. Assessment & Plan (06/30/2019 9:28 AM GLASS FORMING ENGINEER): Patient states little more did shortness of [...] 12/23/201812/08 Assessment & Plan (06/30/2019 9:28 AM GLASS FORMING ENGINEER): Controlled. Assessment & Plan (12/23/2018 9:57 AM CDT): Controlled. Continue current medications Cardiomyopathy 04/25/2016 05/25/2021 Assessment & Plan (12/09/2020 2:48 PM CDT): Resolved. Continue carvedilol and losartan. Ischemic cardiomyopathy 04/25/201605/23 Assessment & Plan (07/26/2020 9:06 AM GLASS FORMING ENGINEER): Stable. Continue carvedilol and losartan Mixed hyperlipidemia 12/06/2013 021 Overview (10/27/2016): HYPERLIPIDEMIA NEC/NOS Assessment & Plan (07/26/2020 9:06 AM GLASS FORMING ENGINEER): Continue Lipitor Assessment & Plan (01/12/2020 9:46 AM CDT): Continue atorvastatin Assessment & Plan (06/30/2019 9:29 AM GLASS FORMING ENGINEER): Continue Lipitor 40 Assessment & Plan (12/23/2018 9:57 AM CDT): Last lipid panel near goal. Patient was shows to continue to exercise and diet Seizure ([facility]/HCC) 05/25/2021 Overview (12/27/2020): 8TH GRADE - [...] on file Legal Sex Female 11:37 PM GLASS FORMING ENGINEER Gender Identity Not on file Sexual Orientation Not on file Occupation Industry Job Start Date Job End Date Retired Not on file Not on file Not on file Last Filed Vital Signs Vital Sign Reading Time Taken Comments Blood Pressure 116/70 06/16/2024 10:12 AM GLASS FORMING ENGINEER Pulse 73 06/16/2024 10:12 AM GLASS FORMING ENGINEER Temperature 36.1 C (97 F) 06/16/2024 10:12 AM GLASS FORMING ENGINEER Respiratory Rate 18 06/16/2024 10:12 AM GLASS FORMING ENGINEER Oxygen Saturation 95% 06/16/2024 10:12 AM GLASS FORMING ENGINEER Inhaled Oxygen Concentration - - Weight 69.9 kg (154 lb) 06/16/2024 10:12 AM GLASS FORMING ENGINEER Height 165.1 cm (5' 5 ) 06/16/2024 10:12 AM GLASS FORMING ENGINEER Body Mass Index 25.63 06/16/2024 10:12 AM GLASS FORMING ENGINEER Plan of Treatment Not on file Medical Devices Implanted Type Area Mechanical Systems Control Engineer Device Identifier Shelf Expiration Date Model / Serial / Lot Icd-05/23/2001 Implanted: 001 by Luciano Washburn MD (Quantity not on file) ICD Left: Chest [employer] [id number] Visia Af Mri Surescan [id number] Defibrillator Cardiac - [id number] - [id number] Implanted:Qty: 1 on 12/28/2020 by Luciano Washburn MD at [facility] ICD Med[employer] Inc [id number] 04/05/2021 [id number] / [id number] H / Procedures Procedure Name Priority Date/Time Associated Diagnosis Comments DEXA AXIAL SKELETON BONE DENSITY 1 OR MORE SITES Schedule Routine, Read Routine (OP Routine) 12/08/2022 12:38 PM CDT Medicare annual wellness visit, subsequent Age-related osteoporosis without current pathological fracture from Last 3 Months or Most Recently Relevant to Health Maintenance Results * Dexa Axial Skeleton Bone Density 1 Or 2 Site (12/08/2022 12:38 PM CDT) Anatomical Region Laterality Modality Body N/A Mammography 12/09/2022 6:21 PM CDT Narrative 12/09/2022 6:23 PM CDT EXAM DESCRIPTION: DEXA AXIAL SKELETON BONE DENSITY 1 OR MORE SITES REASON FOR STUDY: 77 y/o year old F with given history of screening. Mechanical Systems Control Engineer/Model: Conzoom A (S/N [id number]) CLINICAL INFORMATION: Current height: 65 inches Maximum [...] Gabriella Garcia M.D. TW: TW Report ID: [id number] Reading Location: [place] [address] Procedure Note Gabriella Garcia MD - 12/09/2022 EXAM DESCRIPTION: DEXA AXIAL SKELETON BONE DENSITY 1 OR MORE SITES REASON FOR STUDY: 77 y/o year old F with given history of screening. Mechanical Systems Control Engineer/Model: Hologic snapp.me A (S/N [id number]) CLINICAL INFORMATION: Current height: 65 inches Maximum [...] Garcia M.D. TW: CARLOS MANUEL Report ID: [id number] Reading Location: [place] [address] Zaki Burr Jr., PA IMG DXA PROCEDURES Fi nal Result from Last 3 Months or Most Recently Relevant to Health Maintenance Insurance [employer] CHOICE MEDICARE PPO Care Teams Order Management Specialist Relationship Specialty Start Date End Date Zaki Burr Jr., PA [address] [place] [address] PCP - General Physician Assistant Superintendent For Curriculum 10/29/18 Jl Nevarez MD [address] [place] [address] Consulting Physician Family Medicine 06/02/22
--- OUTSIDE RECORDS SUMMARY | 2024-10-02 00:06 | XMS_ITS | Clinical Summary ---
Author Organization [address] Address [address] [place] [address] Care Team Providers Care County Judge Name Role Phone ASHVIN Burr Jr., Zaki Wolf Primary Care Provide r Jl Nevarez MD Unavailable [phone] Allergies Active Allergy Reactions Criticality Noted Date [...] Cozaar Assessment & Plan (06/30/2019 9:29 AM DIABETIC EDUCATOR): Fluid accumulation late May resolved. Perhaps dietary [...] pacemaker Assessment & Plan (07/26/2020 9:08 AM DIABETIC EDUCATOR): Normal function. No pacing. Nearing SUPRIYA. Assessment & Plan (01/12/2020 9:35 AM CDT): Check today shows normal function. Underlying rhythm sinus. Excellent lead function. Battery about 1 year. Assessment & Plan (06/30/2019 9:21 AM DIABETIC EDUCATOR): Check today shows normal function. No pacing excellent lead function. No arrhythmias. Assessment & Plan (12/23/2018 9:52 AM CDT): Check today shows normal function. Underlying rhythm sinus. Normal histogram. Excellent lead function and better life. No events Coronary artery disease of n ative artery of [place] heart with stable angina pectoris 12/23/2018 Assessment & Plan (07/26/2020 9:08 AM DIABETIC EDUCATOR): No symptoms. Continue aspirin atorvastatin carvedilol Assessment & Plan (01/12/2020 9:45 AM CDT): Recent stress test showed infarct but no ischemia. Continue carvedilol aspirin and statin. Assessment & Plan (06/30/2019 9:28 AM DIABETIC EDUCATOR): Patient states little more did shortness of [...] 12/23/201812/08 Assessment & Plan (06/30/2019 9:28 AM DIABETIC EDUCATOR): Controlled. Assessment & Plan (12/23/2018 9:57 AM CDT): Controlled. Continue current medications Cardiomyopathy 04/25/2016 05/25/2021 Assessment & Plan (12/09/2020 2:48 PM CDT): Resolved. Continue carvedilol and losartan. Ischemic cardiomyopathy 04/25/201605/23 Assessment & Plan (07/26/2020 9:06 AM DIABETIC EDUCATOR): Stable. Continue carvedilol and losartan Mixed hyperlipidemia 12/06/2013 021 Overview (10/27/2016): HYPERLIPIDEMIA NEC/NOS Assessment & Plan (07/26/2020 9:06 AM DIABETIC EDUCATOR): Continue Lipitor Assessment & Plan (01/12/2020 9:46 AM CDT): Continue atorvastatin Assessment & Plan (06/30/2019 9:29 AM DIABETIC EDUCATOR): Continue Lipitor 40 Assessment & Plan (12/23/2018 9:57 AM CDT): Last lipid panel near goal. Patient was shows to continue to exercise and diet Seizure ([facility]/HCC) 05/25/2021 Overview (12/27/2020): 8TH GRADE - STARING SPELLS Encounters Date Type Department Care Team Description 07/08/2024 Orders Only [facility] Primary Care [address] [place] [address] [address] [place] [address] Zaki Burr Jr., PA Bilateral leg pain (Primary Dx); Chronic right-sided low back pain without sciatica from Last 3 Months Immunizations Immunization Administration [...] on file Legal Sex Female 11:37 PM DIABETIC EDUCATOR Gender Identity Not on file Sexual Orientation [...] Comments Blood Pressure 116/70 06/16/2024 10:12 AM DIABETIC EDUCATOR Pulse 73 06/16/2024 10:12 AM DIABETIC EDUCATOR Temperature 36.1 C (97 F) 06/16/2024 10:12 AM DIABETIC EDUCATOR Respiratory Rate 18 06/16/2024 10:12 AM DIABETIC EDUCATOR Oxygen Saturation 95% 06/16/2024 10:12 AM DIABETIC EDUCATOR Inhaled Oxygen Concentration - - Weight 69.9 kg (154 lb) 06/16/2024 10:12 AM DIABETIC EDUCATOR Height 165.1 cm (5' 5 ) 06/16/2024 10:12 AM DIABETIC EDUCATOR Body Mass Index 25.63 06/16/2024 10:12 AM DIABETIC EDUCATOR Plan of Treatment Health Maintenance Due Date Last Done Comments Hepatitis B Screening 1963 Covid-19 Vaccine (2023-2 5 season) 2024 11/17/2021, 10/13/2020, 09/21/2020 Osteoporosis Screening-Bone [...] Vaccine Discontinued Medical Devices Implanted Type Area Pourer Metal Device Identifier Shelf Expiration Date Model / Serial / Lot Icd-05/23/2001 Implanted: 001 by Luciano Washburn MD (Quantity not on file) ICD Left: Chest [employer] [id number] Visia Af Mri Surescan [id number] Defibrillator Cardiac - [id number] - [id number] Implanted:Qty: 1 on 12/28/2020 by Luciano Washburn MD at [facility] ICD Medtronic Inc [id number] 04/05/2021 [id number] / [id number] H / Procedures Procedure Name Priority Date/Time [...] old F with given history of screening. Pourer Metal/Model: iPrint A (S/N [id number]) CLINICAL INFORMATION: Current height: 65 inches Maximum [...] Gabriella Garcia M.D. TW: TW Report ID: [id number] Reading Location: [id number] Procedure Note Gabriella Garcia MD - 12/09/2022 EXAM DESCRIPTION: DEXA AXIAL SKELETON BONE DENSITY 1 OR MORE SITES REASON FOR STUDY: 77 y/o year old F with given history of screening. Pourer Metal/Model: Shoobs Horizon A (S/N [id number]) CLINICAL INFORMATION: Current height: 65 inches Maximum [...] Gabriella Garcia M.D. TW: TW Report ID: [id number] Reading Location: [place] [address] ASHVIN Mckeon Jr. IMJaylene DXA PROCEDURES Fi nal Result from Last 3 Months or Most Recently Relevant to Health Maintenance Insurance [employer] CHOICE MEDICARE PPO Care Teams County Judge Relationship Specialty Start Date End Date Zaki Burr Jr., PA [address] [place] [address] PCP - General Physician Manager Applied 10/29/18 Jl Nevarez MD [address] [place] [address] Consulting Physician Family Medicine 06/02/22
--- OUTSIDE RECORDS SUMMARY | 2024-10-02 00:06 | XMS_ITS | Encounter Summary ---
Author Organization [facility] Care Team Providers Care A&P Mechanic Name Role Phone Sagar Walters MD Primary Care Provider [phone] ASHVIN Burr Jr., Zaki Wolf Primary Care Provide r Jonna Osorio MD Unavailable [phone] Jl Nevarez MD Unavailable [phone] Encounter Details Date Type Department Care Team (Latest Contact Info) Description 09/19/2016 Orders Only [facility] ProviderJoe MD [address] [place] [address] Social History Tobacco Use Types Packs/Day Years Used Date Smoking Tobacco: Never Alcohol Use Standard Drinks/Week Comments No 0 (1 standard drink = 0.6 oz pur e alcohol) Comments Unknown Sex and Gender Information Value Date Recorded Sex Assigned at Not on file Legal Sex Female 11:37 PM NUTRITION TEACHER Gender Identity Not on file Sexual Orientation Not on file documented as of this encounter Plan of Treatment Not on file documented as of this encounter Procedures Procedure Name Priority Date/Time Associated Diagnosis Comments CARDIOLOGY REPORT 09/19/2016 12: 00 AM NUTRITION TEACHER documented in this encounter Results * CARDIOLOGY REPORT (09/19/2016 12:00 AM NUTRITION TEACHER) Anatomical Region Laterality Modality Other Narrative 09/19/2016 12:00 AM NUTRITION TEACHER Ordered by an unspecified provider. Historical Provider [facility] Final Result documented in this encounter Visit Diagnoses Not on filedocumented in this encounter Care Teams A&P Mechanic Relationship Specialty Start Date End Date Sagar Walters MD [address] [address] PCP - General 03/09/09 10/28/18 Zaki Burr Jr. PA [address] [place] [address] PCP - General Physician Environmental Attorney 10/29/18 Jonna Osorio MD [address] [place] [address] Consulting Physician Family Medicine 07/02/19 06/01/22 Jl Nevarez MD [address] [place] [address] Consulting Physician Family Medicine 06/02/22 documented as of this encounter
--- OUTSIDE RECORDS SUMMARY | 2024-10-02 00:06 | XMS_ITS | Encounter Summary ---
Author Organization [facility] Facility Care Team Providers Care Core Manager Name Role Phone Sagar Walters MD Primary Care Provider [phone] ASHVIN Burr Jr., Zaki Wolf Primary Care Provide r Jonna Osorio MD Unavailable [phone] Jl Nevarez MD Unavailable [phone] Encounter Details Date Type Department Care Team (Latest Contact Info) Description 02/05/2017 Orders Only [facility]INCON[facility] ProviderJoe MD [address] [place] [address] Social History Tobacco Use Types Packs/Day Years Used Date Smoking Tobacco: Never Alcohol Use Standard Drinks/Week Comments No 0 (1 standard drink = 0.6 oz pur e alcohol) Comments Unknown Sex and Gender Information Value Date Recorded Sex Assigned at Not on file Legal Sex Female 11:37 PM MINING SUPPORT WORKER Gender Identity Not on file Sexual Orientation [...] on filedocumented in this encounter Care Teams Core Manager Relationship Specialty Start Date End Date Sagar Walters MD [address] [address] PCP - General 03/09/09 10/28/18 Zaki Burr Jr., PA [address] [place] [address] PCP - General Physician Workforce Services Representative 10/29/18 Jonna Osorio MD [address] [place] [address] Consulting Physician Family Medicine 07/02/19 06/01/22 Jl Nevarez MD [address] [place] [address] Consulting Physician Family Medicine 06/02/22 documented as of this encounter
--- OUTSIDE RECORDS SUMMARY | 2024-10-02 00:06 | XMS_ITS | Encounter Summary ---
Author Organization [facility] Facility Care Team Providers Care Truck Bracer Name Role Phone Sagar Walters MD Primary Care Provider [phone] ASHVIN Burr Jr., Zaki Wolf Primary Care Provide r Jonna Osorio MD Unavailable [phone] Jl Nevarez MD Unavailable [phone] Encounter Details Date Type Department Care Team (Latest Contact Info) Description 04/20/2016 Orders Only [facility]INCON[facility] ProviderJoe MD [address] [place] [address] Social History Tobacco Use Types Packs/Day Years Used Date Smoking Tobacco: Never Alcohol Use Standard Drinks/Week Comments No 0 (1 standard drink = 0.6 oz pur e alcohol) Comments Unknown Sex and Gender Information Value Date Recorded Sex Assigned at Not on file Legal Sex Female 11:37 PM CYBER SYSTEMS ENGINEER Gender Identity Not on file Sexual [...] on filedocumented in this encounter Care Teams Truck Bracer Relationship Specialty Start Date End Date Sagar Walters MD [address] [facility] [address] [place] [address] PCP - General 03/09/09 10/28/18 Zaki Burr Jr., PA [facility] [address] [phone] PCP - General Physician Time Clock Inspector 10/29/18 Jonna Osorio MD [address] [place] [phone] Consulting Physician Family Medicine 07/02/19 06/01/22 Jl Nevarez MD [address] [place] [address] Consulting Physician Family Medicine 06/02/22 documented as of this encounter
--- OUTSIDE RECORDS SUMMARY | 2024-10-02 00:06 | XMS_ITS | Encounter Summary ---
Author Organization [facility] Facility Care Team Providers Care Automobile Radio Repairer Name Role Phone Sagar Walters MD Primary Care Provider [phone] ASHVIN Burr Jr., Zaki Wolf Primary Care Provide r Jonna Osorio MD Unavailable [phone] Jl Nevarez MD Unavailable [phone] Encounter Details Date Type Department Care Team (Latest Contact Info) Description 06/07/2017 Orders Only [facility]INCON[facility] ProviderJoe MD [address] [place] [address] Social History Tobacco Use Types Packs/Day Years Used Date Smoking Tobacco: Never Alcohol Use Standard Drinks/Week Comments No 0 (1 standard drink = 0.6 oz pur e alcohol) Comments Unknown Sex and Gender Information Value Date Recorded Sex Assigned at Not on file Legal Sex Female 11:37 PM AGRICULTURE DEPARTMENT CHAIR Gender Identity Not on file Sexual Orientation Not on file documented as of this encounter Plan of Treatment Not on file documented as of this encounter Procedures Procedure Name Priority Date/Time Associated Diagnosis Comments CARDIOLOGY REPORT 06/07/2017 12: 00 AM AGRICULTURE DEPARTMENT CHAIR documented in this encounter Results * CARDIOLOGY REPORT (06/07/2017 12:00 AM AGRICULTURE DEPARTMENT CHAIR) Anatomical Region Laterality Modality Other Narrative 06/07/2017 12:00 AM AGRICULTURE DEPARTMENT CHAIR Ordered by an unspecified provider. Historical Provider [facility] HEIDY JUDD Final Result documented in this encounter Visit Diagnoses Not on filedocumented in this encounter Care Teams Automobile Radio Repairer Relationship Specialty Start Date End Date Sagar Walters MD [address] [address] PCP - General 03/09/09 10/28/18 Zaki Burr Jr. PA [address] [place] [address] PCP - General Physician Trigonometry Teacher 10/29/18 Jonna Osorio MD [address] [place] [address] Consulting Physician Family Medicine 07/02/19 06/01/22 Jl Nevarez MD [address] [place] [address] Consulting Physician Family Medicine 06/02/22 documented as of this encounter
== END 2024-10-02 00:15 | disposition home or self-care (01) ==
LOC: ANHED 10-02 00:03
PROVIDERS: Emergency Provider Physician Assistant
DX: S59.292A Other physeal fracture of lower end of radius, left arm, initial encounter for closed fracture (principal); S52.612A Displaced fracture of left ulna styloid process, initial encounter for closed fracture; W10.9XXA Fall (on) (from) unspecified stairs and steps, initial encounter
CPT/HCPCS: 25605; 29125; 73110; 73130; 99284; A4565